=== PATIENT | female | born 1945 | race Caucasian/White ===

== ENCOUNTER → 2016-10-29 | Outpatient (CLI) | payer OTHER ==
[~2016-10-29] MED LIST: ASPCH81X PO; ATEN-173 PO; B-COTAB18 PO; CITA10TA4 PO; CLX40 PO; CYAN500T13 PO; GABA-113 PO; GLC/500 PO; GLUCPOW41 PO; LEVO100T7 PO; LIRA18IN SC; LISI-461 PO; LSN5 PO; METF1000 PO; MULTTAB58 PO; PANT40TA PO; SIMV20TA2 PO; SYN112 PO; TRAM-10 PO
[2016-10-29 13:31] LABS: THYROID STIMULATING HORMONE 1.85 uIu/ml (0.300-4.500)
[2016-10-29 14:49] LABS: LYME DISEASE AB IGG NEG (NEG); LYME DISEASE AB IGM NEG (NEG)
== END | disposition home or self-care (01) ==
LOC: C.LABBFT 11:10
PROVIDERS: ATTEND Internal Medicine
DX: E03.9 Hypothyroidism, unspecified (principal)

== ENCOUNTER 2017-03-24 08:18 | Emergency (ER) | payer OTHER ==
[~2017-03-24] VITALS: Ht 157.5 cm; Wt 95.0 kg
[~2017-03-24 08:18] MED LIST changes: -CLX40 PO; -LSN5 PO; -METF1000 PO; -SYN112 PO
[2017-03-24 08:25] VITALS: TEMP 36.7; Ht 157.5 cm; Wt 95.0 kg
[2017-03-24] MEDS ORDERED: CLX40 PO (09:08)
[2017-03-24] MEDS ORDERED: LSN5 PO (09:08)
[2017-03-24] MEDS ORDERED: METF1000 PO (09:08)
[2017-03-24] MEDS ORDERED: SYN112 PO (09:08)
--- NOTE | 2017-03-24 09:23 | DIAGNOSTIC IMAGING REPORT ---
THORACIC SPINE CT CT DOSE: 1343.40 mGy.cm HISTORY: FALL, MID BACK PAIN TECHNIQUE: Multiaxial CT images of the thoracic spine were performed and reformatted in the sagittal and coronal plane without the use of contrast. A dose lowering technique was utilized adhering to the principles of ALARA. COMPARISON: None. FINDINGS: No acute fracture or subluxation. Vertebral body heights are well-maintained. Flowing anterior osteophytes seen throughout the majority of the thoracic spine consistent with diffuse idiopathic skeletal hyperostosis. Mild disc space narrowing throughout the thoracic spine consistent with degenerative change. No paravertebral soft tissue edema. Dextroscoliosis. A 4 mm nodule within the left lower lobe on image 297. A 4 mm nodule within the right lower lobe on image 279. Subtle 7 mm groundglass nodule within the right lung apex on image 71. No significant central canal narrowing. IMPRESSION: No fractures within the thoracic spine. A few subcentimeter nodules within the lungs as described above. Recommend [address] follow-up to ensure stability. Electronically signed by: Marshall Pierre M.D. 03/24/2017 9:21 AM Dictated Date/Time: 03/24/2017 9:13 AM
--- NOTE | 2017-03-24 09:25 | DIAGNOSTIC IMAGING REPORT ---
RIGHT SHOULDER 3 VIEWS HISTORY: RIGHT, SCAPULAR PAIN AFTER A FALL Right COMPARISON: None. FINDINGS: There is no fracture or dislocation. Soft tissues are unremarkable. Moderate osteoarthritis of the glenohumeral and acromioclavicular joints. There is a large spur at the undersurface of the acromion. The clavicle appears intact. IMPRESSION: No fracture or dislocation within the right shoulder. Moderate osteoarthritis. Electronically signed by: Marshall Pierre M.D. 03/24/2017 9:23 AM Dictated Date/Time: 03/24/2017 9:22 AM
--- NOTE | 2017-03-24 09:27 | DIAGNOSTIC IMAGING REPORT ---
CHEST 2 VIEWS ROUTINE HISTORY: RIGHT CHEST DISCOMFORT AFTER A FALL COMPARISON: Chest 05/31/2014. FINDINGS: The lungs are clear. Cardiac silhouette is borderline enlarged. This is not significantly changed.. No pleural effusions. No pneumothorax. IMPRESSION: No significant change compared to the prior study. No acute process. Electronically signed by: Marshall Pierre M.D. 03/24/2017 9:25 AM Dictated Date/Time: 03/24/2017 9:23 AM
--- NOTE | 2017-03-24 10:12 | EMERGENCY ROOM VISIT NOTE ---
History First contact with patient: 08:28 Chief Complaint: BACK PAIN Stated Complaint: FELL IN BATHTUB, BACK PAIN History of Present Illness Patient is a 71-year-old white female who presents to the emergency department for evaluation of right mid back pain after a mechanical fall last evening. She slipped in the shower last evening, about 15 hours ago. She twisted, striking her right mid back on the shower seat, then falling to the ground. She did not strike her head or lose consciousness. Her was able to help her get up with the assistance of a chair. She noted pain in her mid back immediately. They went for a ride with her grandchildren, then came home. She took tramadol last night and this morning for her discomfort which she presently rates a 9/10. She complains of pain in the right mid back, between her spine and her shoulder blade. Pain is worse with specific movements. She feels more comfortable when she is sitting. She does have some discomfort that she feels through to the right chest. She denies any headache, lightheadedness or dizziness. No neck pain. She denies any rib discomfort, no pain with taking a deep breaths. She denies any abdominal pain, nausea or vomiting. She takes a baby aspirin daily. Review of Systems Review of systems as per HPI. All other systems reviewed were negative. 10 systems reviewed. Past Medical/Surgical History Medical Problems: (1) Diabetes (2) Esophageal Reflux (3) Hypertension (4) Hypothyroidism, Unspecified (5) Kidney problem (6) Vomiting and diarrhea (7) Vomiting and diarrhea Surgical Problems: (1) History of cholecystectomy (2) History of hysterectomy Electronic medical records are reviewed and summarized as above/below. See Problem List. Family History Heart disease Stroke Social History Smoking Status: Never Smoker Alcohol Use: none Drug Use: none Marital Status: Occupation Status: disabled Current/Historical Medications Scheduled Aspirin (Aspirin Chewable), 81 MG PO QAM Atenolol (Tenormin), 25 MG PO QAM Citalopram (Citalopram Hydrobromide), 40 MG PO DAILY Gabapentin (Neurontin), 300 MG PO TID Nysehwoylii-Wvumxbclsyv-Izebqc (Glucosamine & Chrondroiti), 1 TAB PO BID Levothyroxine Sodium (Synthroid), 112 MCG PO DAILY Liraglutide (Victoza), 1.2 MG SC QAM Lisinopril (Lisinopril), 5 MG PO DAILY Metformin Hcl (Glucophage), 1,000 MG PO BID Multiple Vitamin (Multivitamin), 1 TAB PO QAM Pantoprazole (Protonix), 40 MG PO HS Simvastatin (Zocor), 20 MG PO QPM Scheduled PRN Tramadol (Ultram), 50 MG PO Q8H PRN for Pain Physical Exam Vital Signs Date Time Temp Pulse Resp B/P (MAP) Pulse Ox O2 Delivery O2 Flow Rate FiO2 03/24/17 10:30 68 18 129/66 96 03/24/17 09:45 64 18 122/63 95 Room Air 03/24/17 08:25 36.7 73 20 152/77 96 Physical Exam GENERAL: Patient is a pleasant, 71-year-old white female who is awake and alert and sitting upright on the gurney in mild distress due to her mid back discomfort. HEENT: Head - normocephalic and atraumatic. Pupils are equal, round, and reactive to light. Extraocular eye muscles are intact and sclera are anicteric. Ears - bilaterally patent canals with no evidence of hemotympanum. Mouth - moist buccal mucosa with no trauma to the teeth or signs of malocclusion. Neck: The neck is supple and there is no pain to palpation over the posterior cervical spine and no obvious step-offs or deformities. There is no JVD or tracheal deviation. Chest: There are no signs of deformities, contusions or abrasions to the chest wall. There is no obvious crepitus or paradoxical chest rise. Heart: Regular rate, and regular rhythm. Lungs: Breath sounds equal and clear to auscultation without wheezes, rales, or rhonchi heard. Abdomen: Soft, completely nontender, nondistended, with good bowel sounds. There is no sign of trauma such as contusions, abrasions or penetrations. There are no palpable pulsatile masses or hepatosplenomegaly. There is no guarding, rigidity, or rebound noted. Extremities: No obvious trauma, deformities, contusions, or edema. There are easily palpable peripheral pulses. Neuro: The patient is awake and alert and easily able to follow commands. Muscle strength is 5 out of 5 in all 4 extremities. Otherwise, neuro exam is unremarkable. Back: The entire thoracic, lumbar, and sacral spine were palpated. She has reproducible discomfort in the mid thoracic region, primarily on the right, and into the right scapula. No discomfort over the lumbar spine. There are no obvious step-offs or deformities noted. The patient has an area of ecchymosis noted on the left mid back. Medical Decision & Procedures ER Provider Diagnostic Interpretation: CHEST 2 VIEWS ROUTINE HISTORY: RIGHT CHEST DISCOMFORT AFTER A FALL COMPARISON: Chest 05/31/2014. FINDINGS: The lungs are clear. Cardiac silhouette is borderline enlarged. This is not significantly changed.. No pleural effusions. No pneumothorax. IMPRESSION: No significant change compared to the prior study. No acute process. RIGHT SHOULDER 3 VIEWS HISTORY: RIGHT, SCAPULAR PAIN AFTER A FALL Right COMPARISON: None. FINDINGS: There is no fracture or dislocation. Soft tissues are unremarkable. Moderate osteoarthritis of the glenohumeral and acromioclavicular joints. There is a large spur at the undersurface of the acromion. The clavicle appears intact. IMPRESSION: No fracture or dislocation within the right shoulder. Moderate osteoarthritis. THORACIC SPINE CT CT DOSE: 1343.40 mGy.cm HISTORY: FALL, MID BACK PAIN TECHNIQUE: Multiaxial CT images of the thoracic spine were performed and reformatted in the sagittal and coronal plane without the use of contrast. A dose lowering technique was utilized adhering to the principles of ALARA. COMPARISON: None. FINDINGS: No acute fracture or subluxation. Vertebral body heights are well-maintained. Flowing anterior osteophytes seen throughout the majority of the thoracic spine consistent with diffuse idiopathic skeletal hyperostosis. Mild disc space narrowing throughout the thoracic spine consistent with degenerative change. No paravertebral soft tissue edema. Dextroscoliosis. A 4 mm nodule within the left lower lobe on image 297. A 4 mm nodule within the right lower lobe on image 279. Subtle 7 mm groundglass nodule within the right lung apex on image 71. No significant central canal narrowing. IMPRESSION: No fractures within the thoracic spine. A few subcentimeter nodules within the lungs as described above. Recommend [address] follow-up to ensure stability. ED Course Patient was seen and assessed as above. She had her eating and tramadol this morning and therefore declined any additional medication needs. Chest x-ray, right shoulder x-ray and thoracic spine CT scan were obtained to evaluate for injury related to the fall. X-rays and CT were negative for acute fracture or bony abnormality. The patient was reassessed and may aware of the results of her workup. She was reassured. Differential diagnoses entertained included contusion, compression fracture, rib injury, muscle strain, among others. Her fall was mechanical in nature, and not consistent with syncope, seizure or arrhythmia. I do not suspect retroperitoneal or intra-abdominal trauma. She was encouraged to use her tramadol as needed for discomfort, and was advised to follow-up with her primary care provider if her symptoms are not improving. Patient rated her discomfort an 8/10 at discharge. Medical Decision See Emergency Department course. Medication Reconcilliation Current Medication List: was personally reviewed by me Blood Pressure Screening Patient's blood pressure: Elevated blood pressure Blood pressure disposition: Did not require urgent referral Impression Primary Impression: Contusion of mid back Additional Impression: Fall Departure Information Referrals Brenton Llanes M.D. (PCP) Patient Instructions My [facility] Additional Instructions Continue Tramadol as needed for pain. Ibuprofen(Motrin, Advil) may be used for fever or pain. Use 600mg every six hours as needed. Take with food. Avoid using more than 2400mg in a 24 hour period. Do not use 2400mg per day for more than three consecutive days without physician direction. Prolonged inappropriate use can lead to stomach upset or ulcers. This medication can be taken if you need to drive, work, or perform activities which may be dangerous when taking narcotic pain medication. (AND/OR) Acetaminophen(Tylenol) may be used for fever or pain. Use 1000mg every six hours as needed. Avoid using more than 3000mg in a 24 hour period. This medication can be taken if you need to drive, work, or perform activities which may be dangerous when taking narcotic pain medication. Rest and avoid heavy lifting until your symptoms resolve and then gradually return to full activity. A good rule of thumb is if it hurts your back to perform a certain activity, then it should be avoided until you are healthy again. A heating pad, warm compresses, or a hot shower may help with tight muscles and can be done several times a day as needed. Continue current medications. Return to the ER immediately for any numbness, tingling, severe pain, loss of control of your bowels or bladder, inability to walk, or as needed. Follow up with your primary care physician within 3-5 days for a recheck of your current condition. Problem Qualifiers Primary Impression: Contusion of mid back Encounter type: initial encounter Laterality: right Qualified Codes: S20.221A - Contusion of right back wall of thorax, initial encounter Additional Impression: Fall Encounter type: initial encounter Qualified Codes: W19.XXXA - Unspecified fall, initial encounter
[2017-03-24 10:30] VITALS: BP 129/66; PULSE 68; O2SAT 96
--- NOTE | 2017-03-24 15:12 | EMERGENCY ROOM VISIT NOTE ---
ED Visit Note First contact with patient: 08:25 I have personally seen and evaluated the patient with the PA. I agree with the diagnosis and management decisions and have been personally involved in the case. Please see Aicha Rodríguez PA-C's notes for further details of the history , physical and visit.
== END 2017-03-24 10:32 | disposition home or self-care (01) ==
LOC: C.EDB 08:20 → C.EDA 10:32
DX: S20.221A Contusion of right back wall of thorax, initial encounter (principal); W01.0XXA Fall on same level from slipping, tripping and stumbling without subsequent striking against object, initial encounter; Y92.012 Bathroom of single-family (private) house as the place of occurrence of the external cause; E11.9 Type 2 diabetes mellitus without complications; K21.9 Gastro-esophageal reflux disease without esophagitis; I10 Essential (primary) hypertension; E03.9 Hypothyroidism, unspecified; Z82.49 Family history of ischemic heart disease and other diseases of the circulatory system; Z79.82 Long term (current) use of aspirin; Z79.899 Other long term (current) drug therapy

== ENCOUNTER → 2017-04-26 | Outpatient (CLI) | payer OTHER ==
[~2017-04-26] MED LIST changes: -B-COTAB18 PO; -CITA10TA4 PO; +CLX40 PO; -CYAN500T13 PO; -GLC/500 PO; -LEVO100T7 PO; -LISI-461 PO; +LSN5 PO; +METF1000 PO; +SYN112 PO
[2017-04-26 12:46] LABS: ALT/SGPT 34 U/L (12-78); BLOOD UREA NITROGEN 15 mg/dl (7-18); BUN/CREATININE RATIO 14.8 (10-20); CALCIUM 8.6 mg/dl (8.5-10.1); CARBON DIOXIDE 26 mmol/L (21-32); CHLORIDE 103 mmol/L (98-107); CHOLESTEROL 160 mg/dl (0-200); GLUCOSE 199 mg/dl (70-99); POTASSIUM 4.2 mmol/L (3.5-5.1); SODIUM 136 mmol/L (136-145)
[2017-04-26 12:57] LABS: ALB/GLOB RATIO 0.9 (0.9-2); ALKALINE PHOSPHATASE 96 U/L (45-117); AST/SGOT 34 U/L (15-37); CHOLESTEROL/HDL RATIO 2.3; HDL CHOLESTEROL 71 mg/dl; LDL CHOLESTEROL CALCULATED 55 mg/dl; TRIGLYCERIDES 169 mg/dl (0-150); VERY LOW DENSITY LIPOPROT CALC 34 mg/dl
[2017-04-26 13:08] LABS: ESTIMATED AVERAGE GLUCOSE 171 mg/dl; HA1C FLAG Normal (Normal)
[2017-04-26 14:47] LABS: RATIO 2072.7 mcg/mg (0-30.0)
--- NOTE | 2017-05-06 09:48 | CODING QUERY MEDICAL NECESSITY ---
CQSUPPORTING DIAGNOSIS NEEDED A supporting diagnosis is required for the test/procedure performed on this patient in order for us to be reimbursed by the patient's insurance. Please provide a supporting diagnosis for the following test/procedure listed below next to the test name along with your signature. *If there is no additional diagnosis for this patient that would support the following test/procedure please document that below next to the test/procedure. Test(s)/Procedure(s) that require a supporting diagnosis: DOS 04/26/17 VITAMIN D TEST Provider Signature: Date: Thank you Faith Dhillon Health Information Management Once completed, please kindly fax back to [phone] For questions please call [phone]
== END | disposition home or self-care (01) ==
LOC: C.LAB1850 11:19
PROVIDERS: ATTEND Internal Medicine Endocrinology, Diabetes & Metabolism
DX: E11.9 Type 2 diabetes mellitus without complications (principal)

== ENCOUNTER 2017-07-12 19:13 | Emergency (ER) | payer OTHER ==
[2017-07-12 19:19] VITALS: TEMP 36.7; Ht 157.5 cm
--- NOTE | 2017-07-12 20:31 | DIAGNOSTIC IMAGING REPORT ---
LEFT KNEE 3 VIEWS CLINICAL HISTORY: Left knee injury. FINDINGS: AP, crosstable lateral, and sunrise views of the left knee are obtained. No prior studies are available for comparison at the time of dictation. The skeletal structures are osteopenic. No fracture is seen. There is advanced tricompartmental degenerative joint space narrowing, greatest in the medial and patellofemoral compartment where there is near complete loss of the joint space. There are large marginal osteophytes. Chondrocalcinosis is seen in the medial and lateral compartments. Calcified fabella is are incidentally noted. A small joint effusion is identified. Mild overlying soft tissue edema is noted. IMPRESSION: 1. Soft tissue swelling and moderate effusion. No fracture seen. 2. Osteopenia and advanced arthritic change as above. Electronically signed by: Mulugeta Cardona M.D. 07/12/2017 8:30 PM Dictated Date/Time: 07/12/2017 8:27 PM
[2017-07-12] MEDS ORDERED: INSU3INJ3 SQ (20:52)
--- NOTE | 2017-07-12 20:52 | EMERGENCY ROOM VISIT NOTE ---
ED Visit Note First contact with patient: 19:24 The patient was seen and examined with Aidee Howe PA-C. I agree with the history, physical and findings. Please see the note for disposition and details.
--- NOTE | 2017-07-12 21:02 | EMERGENCY ROOM VISIT NOTE ---
History First contact with patient: 19:24 Chief Complaint: KNEEPAIN Stated Complaint: KNEE PAIN LEFT History of Present Illness The patient is a 71 year old female who presents to the Emergency Room with complaints of left knee pain. The patient reports she has had issues with the left knee for the past 2 months following a fall. She has had worsening pain for the past 2 weeks. She states that today, she twisted the knee and has had difficulty walking since then. She took a tramadol at home for pain without relief. She rates her discomfort a 9/10. She denies any numbness or weakness. She denies any further injuries. She has previously seen [facility] regarding both of her knees. She has had injections for arthritis. Review of Systems A 6 point review of systems was reviewed with the patient with pertinent positives and negatives as per history of present illness. All else were negative. Past Medical/Surgical History Medical Problems: (1) Diabetes (2) Esophageal Reflux (3) Hypertension (4) Hypothyroidism, Unspecified (5) Kidney problem (6) Vomiting and diarrhea (7) Vomiting and diarrhea Surgical Problems: (1) History of cholecystectomy (2) History of hysterectomy Family History Heart disease Stroke Social History Smoking Status: Never Smoker Alcohol Use: none Drug Use: none Marital Status: Occupation Status: disabled Current/Historical Medications Scheduled Aspirin (Aspirin Chewable), 81 MG PO QAM Atenolol (Tenormin), 25 MG PO QAM Citalopram (Citalopram Hydrobromide), 40 MG PO DAILY Gabapentin (Neurontin), 300 MG PO TID Slvztqzlnjh-Japjuuqutqh-Rquzab (Glucosamine & Chrondroiti), 1 TAB PO BID Insulin Detemir (Levemir Flextouch), 20 UNITS SQ QPM Levothyroxine Sodium (Synthroid), 112 MCG PO DAILY Liraglutide (Victoza), 1.2 MG SC QAM Lisinopril (Lisinopril), 5 MG PO DAILY Metformin Hcl (Glucophage), 1,000 MG PO BID Multiple Vitamin (Multivitamin), 1 TAB PO QAM Pantoprazole (Protonix), 40 MG PO HS Simvastatin (Zocor), 20 MG PO QPM Scheduled PRN Tramadol (Ultram), 50 MG PO Q8H PRN for Pain Physical Exam Vital Signs Date Time Temp Pulse Resp B/P (MAP) Pulse Ox O2 Delivery O2 Flow Rate FiO2 12/17 21:10 75 18 140/95 97 07/12/17 19:19 36.7 75 18 178/103 97 Room Air Physical Exam VITALS: Vitals are noted on the nurse's note and reviewed by myself. Vital signs stable. GENERAL: This is a 71-year-old female, in no acute distress, nondiaphoretic, well-developed well-nourished. MUSCULOSKELETAL: There is tenderness to palpation across the anterior aspect of the left knee. Full range of motion of the knee. Decreased strength. No obvious joint effusion. NEURO: Patient was alert and oriented to person place and time. Normal sensation to light and sharp touch. Medical Decision & Procedures ER Provider Diagnostic Interpretation: LEFT KNEE 3 VIEWS CLINICAL HISTORY: Left knee injury. FINDINGS: AP, crosstable lateral, and sunrise views of the left knee are obtained. No prior studies are available for comparison at the time of dictation. The skeletal structures are osteopenic. No fracture is seen. There is advanced tricompartmental degenerative joint space narrowing, greatest in the medial and patellofemoral compartment where there is near complete loss of the joint space. There are large marginal osteophytes. Chondrocalcinosis is seen in the medial and lateral compartments. Calcified fabella is are incidentally noted. A small joint effusion is identified. Mild overlying soft tissue edema is noted. IMPRESSION: 1. Soft tissue swelling and moderate effusion. No fracture seen. 2. Osteopenia and advanced arthritic change as above. Medical Decision Differential diagnosis includes fracture, ligamentous injury, soft tissue injury , among others. The patient was evaluated as above. X-rays of the left knee were obtained and reviewed by radiology with an effusion and no bony abnormalities. Patient was informed of findings. She will follow-up with her established orthopedist. She has a walker at home and was placed in a knee immobilizer. She verbalized understanding and was discharged home in good condition. The patient was independently evaluated by Dr. Brody, ED attending physician, who agreed with my assessment and treatment plan. Medication Reconcilliation Current Medication List: was personally reviewed by me Blood Pressure Screening Patient's blood pressure: Elevated blood pressure Blood pressure disposition: Elevated BP felt to be situational Impression Primary Impression: Left knee injury Departure Information Dispostion Home / Self-Care Condition GOOD Referrals Brenton Llanes M.D. (PCP) Julian Mo M.D. Patient Instructions My [facility] Additional Instructions You have been treated in the Emergency Department for Knee Pain. For pain control, you can use the following hjkv-iyb-vdyfyps medicines (if >12 yo): - Regular strength (325mg/tab) Tylenol (acetaminophen) 2 tabs every 4-6 hours as needed. Do not exceed 12 tablets in a 24 hour period. Avoid taking more than 4 grams (4000 mg) of Tylenol per day. This includes any other sources of acetaminophen you may take on a regular basis. - Regular strength (200 mg/tab) Advil (ibuprofen) 1-2 tabs every 4-6 hours as needed. Do not exceed a dose of 3200 mg per day. If this is a recent injury (<24 hrs), ice can be applied to the area of pain for the first 3 days to help decrease pain and inflammation. Ice massages can be performed by freezing water in a paper cup, peeling back the cup to expose the ice and then massaging over the affected area. Contact [facility] to schedule follow-up. Use the walker at home anytime you are up and walking. Wear the knee immobilizer as needed for your comfort. Return to the Emergency Department if your current symptoms worsen despite treatment course outlined above. Problem Qualifiers Primary Impression: Left knee injury Encounter type: initial encounter Qualified Codes: S89.92XA - Unspecified injury of left lower leg, initial encounter
[2017-07-12 21:10] VITALS: BP 140/95; PULSE 75; O2SAT 97
== END 2017-07-12 21:10 | disposition home or self-care (01) ==
LOC: C.EDB 19:14 → C.EDD 21:10
DX: S89.92XA Unspecified injury of left lower leg, initial encounter (principal); X58.XXXA Exposure to other specified factors, initial encounter; I10 Essential (primary) hypertension; E11.9 Type 2 diabetes mellitus without complications; E03.9 Hypothyroidism, unspecified; K21.9 Gastro-esophageal reflux disease without esophagitis; Z90.710 Acquired absence of both cervix and uterus; Z90.49 Acquired absence of other specified parts of digestive tract; Z79.82 Long term (current) use of aspirin; Z79.4 Long term (current) use of insulin; Z79.84 Long term (current) use of oral hypoglycemic drugs; Z79.899 Other long term (current) drug therapy; Z82.49 Family history of ischemic heart disease and other diseases of the circulatory system; Z82.3 Family history of stroke

== ENCOUNTER → 2017-07-26 | Outpatient (CLI) | payer OTHER ==
[~2017-07-26] MED LIST changes: +INSU3INJ3 SQ
[2017-07-26 14:39] LABS: ESTIMATED AVERAGE GLUCOSE 163 mg/dl; HA1C FLAG Normal (Normal)
== END | disposition home or self-care (01) ==
LOC: C.LAB1850 13:23
PROVIDERS: ATTEND Internal Medicine Endocrinology, Diabetes & Metabolism
DX: E03.9 Hypothyroidism, unspecified (principal); E11.9 Type 2 diabetes mellitus without complications; E55.9 Vitamin D deficiency, unspecified

== ENCOUNTER → 2017-09-30 | Outpatient (CLI) | payer OTHER ==
[~2017-09-30] MED LIST changes: +CHOL100010 PO; -GLUCPOW41 PO; +LEVO125T5 PO; +LISI-725 PO; -LSN5 PO; +MULT-506 PO; -MULTTAB58 PO; -SYN112 PO
--- NOTE | 2017-09-30 13:22 | DIAGNOSTIC IMAGING REPORT ---
CT SCAN OF THE CHEST WITHOUT IV CONTRAST CLINICAL HISTORY: Pulmonary nodule follow-up COMPARISON STUDY: Chest CT dated 07/19/2012. CT scan of the thoracic spine dated 03/24/2017. TECHNIQUE: CT scan of the thorax was performed from the thoracic inlet to the upper abdomen. Images are reviewed in the axial, sagittal, and coronal planes. IV contrast was not administered for this examination as per the referring clinician. A dose lowering technique was utilized adhering to the principles of ALARA. CT DOSE: 619.60 mGycm FINDINGS: Thyroid: Atrophic. Thoracic aorta: There is mild atherosclerotic calcification of the thoracic aorta, which is normal in caliber and demonstrates standard 3-vessel arch anatomy. Heart: The heart is top normal in size and without pericardial effusion. The coronary arteries are densely calcified. Pulmonary trunk is dilated measuring up to 3.5 cm. This suggests pulmonary artery hypertension. Lungs and pleural spaces: There is no airspace consolidation or pleural effusion. The trachea and central airways are clear. There are scattered tiny pulmonary nodules measuring up to 4 mm) right lower lobe images #195, #222, and #230, left lower lobe images #193 and #220). These nodules were present dating back to 2011 and are of doubtful significance. Tiny calcified granulomas are also present. Mediastinum: There is no mediastinal lymphadenopathy. Henrietta: Not well assessed without IV contrast. Axillae: There is no axillary lymphadenopathy. Upper abdomen: Partially visualized upper abdominal viscera is within normal limits. Skeletal structures: The skeletal structures are osteopenic. There is a healing nonunited fracture through the body of T7. This extends from the anterior wall to the inferior endplates and does not involve the posterior elements. No lytic or blastic bony lesions are seen. IMPRESSION: 1. There is no airspace consolidation or pleural effusion. 2. There are scattered pulmonary nodules measuring up to 4 mm. These have not significantly changed in size or distribution dating October 30, 2011 and are of doubtful significance. 3. There is a healing nonunited fracture through the body of T7 as detailed above which does not involve the posterior elements. Electronically signed by: Mulugeta Cardona M.D. 09/30/2017 1:21 PM Dictated Date/Time: 09/30/2017 1:03 PM
== END | disposition home or self-care (01) ==
LOC: C.CTS 12:18
PROVIDERS: ATTEND Internal Medicine
DX: R91.1 Solitary pulmonary nodule (principal)

== ENCOUNTER 2024-04-09 21:30 | Inpatient (IN) ==
--- NOTE | 2024-04-09 22:02 | Emergency Department Note ---
Impression & Plan Left hip pain, Fall, Abrasion of left elbow, Ambulatory dysfunction ED Provider Note NAME: ANA LUISA DAHL AGE: 78 SEX: F : 1945 ARRIVES VIA: Ambulance INFORMANT: [Patient] ED PROVIDER(S): [Mulugeta Ly MD] CHIEF COMPLAINT: Hip pain HISTORY OF PRESENT ILLNESS: The patient is a 78-year-old female who states that she missed the edge of her wheelchair and fell onto her left hip. She has pain when she tries to bear weight on the left leg. At this accident happened just before arrival. She presents by EMS. She states that when she is still, she does not have pain. She did not strike her head or injure her neck or back. She has no chest pain or abdominal pain. Patient does not want anything for pain at this time. She is not on blood thinning agents. Of note, the patient has had a right hip replacement previously. PMHx/PSHx/Social Hx: See Below PHYSICAL EXAM: GENERAL: Patient is in no acute distress. HEENT: No acute trauma, normocephalic atraumatic, mucous membranes moist, no nasal congestion. NECK: No stridor, no adenopathy, no meningismus, trachea is midline. LUNGS: Clear to auscultation bilaterally, no wheeze, no rhonchi, breath sounds equal. HEART: Without murmurs gallops or rubs, regular rate and rhythm. ABDOMEN: Soft, nontender, no peritonitis. EXTREMITIES: No cyanosis. Movement of the left hip does cause some discomfort. There is no left lower extremity deformity. There is a slight abrasion noted to the left posterior elbow. No joint effusion to the left elbow and no pain to move the left elbow joint. NEUROLOGIC: Oriented x 3, no acute motor or sensory deficits, no focal weakness. SKIN: No jaundice, no diaphoresis. Buttock: There is no hematoma or contusion seen in the area of the left hip/buttock. DIFFERENTIAL DIAGNOSIS: Contusion, hematoma, sprain, strain, fracture, among others. EMERGENCY DEPARTMENT PROCEDURES: MEDICAL DECISION MAKING: Patient presents with a fall from her wheelchair onto her left hip. There was no gross deformity to the left lower extremity. She had some mild pain to move the left hip. There was a subtle abrasion to the left elbow but no pain to move the elbow joint. There was no obvious injury to the head, neck, back, chest or abdomen. Films of the left hip and pelvis were performed. There was no obvious through and through hip fracture but there was some irregularity to the greater trochanter of the left hip. A CT of the hip was performed, no fracture seen, arthritis was noted. Patient was ordered for an ambulation trial. She was unfortunately unable to bear weight or take a step. The patient was given IV Toradol, oral Tylenol. Basic laboratory testing was ordered, the values are pending. Given the ambulatory dysfunction and given her pain, the patient will require a hospital stay, pain control and rehab. At this point, the patient appears to have suffered a severe contusion to the left hip from this fall. She has an abrasion to the left posterior elbow. No evidence for injury to the head, neck, back, chest or abdomen. I did speak with case management, the on-call hospitalist was consulted. Prior/Outside records/notes reviewed: Today's EMS notes describing her presentation and transport to this hospital. Imaging/x-ray results per my interpretation: Left hip and pelvis film was p erformed. There was an irregularity to the greater trochanter of the hip but I saw no through and through hip fracture. Some arthritis was seen. Chronic Medical/Social conditions affecting care: Advanced age. Care/Management discussed with: Case management, the on-call hospitalist. Level of care consideration(s): After review of the information above and other included data: --I believe the patient requires escalation of care to admission DISPOSITION: Admission Past Med/Surg History Problem List (Updated 04/10/24 @ 02:27 by Mulugeta yL MD) Ambulatory dysfunction (Acute) Abrasion of left elbow (Acute) Fall (Acute) Left hip pain (Acute) Osteopenia after menopause GERD (gastroesophageal reflux disease) Chronic anemia Albuminuria Arthritis Chronic low back pain Depression with anxiety Diabetic nephropathy associated with type 2 diabetes mellitus Dyslipidemia Hypertension Hypothyroidism Lung nodule Overweight Sleep apnea Solitary thyroid nodule Spinal stenosis Type 2 diabetes mellitus with complications Umbilical hernia Vitamin D insufficiency History of fatty infiltration of liver Chronic renal disease, stage 3, moderately decreased glomerular filtration rate (GFR) between 30-59 mL/min/1.73 square meter Diabetes type 2, controlled Proteinuria Situational stress Stage 3b chronic kidney disease Medical History History of uterine cancer Eric's thyroiditis Surgical History History of total hip replacement Right TKA History of tooth extraction History of cholecystectomy History of section Low transverse Family history of total abdominal hysterectomy and bilateral salpingo-oophorectomy (SHAWN-BSO) Family History Mother Coronary heart disease Hypertension Father Myocardial infarction Uncle Myocardial infarction Aunt Breast cancer Denies family history of Ovarian cancer Prostate cancer Colorectal cancer Social History Smoking Status: Never smoker Second Hand Exposure: No; Do You Dip or Chew Tobacco: No; Hx Alcohol Use: Yes Alcohol type: other Alcohol type Comment: wine cooler Alcohol Intake Frequency: Monthly or Less Hx Substance Use: No Preferred Language: Beninese Hearing Ability: Normal 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 marital status: Current Living Situation: Spouse current occupational status: retired 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 How many Children do You have: 2 Feels Safe at Home: Yes Childhood Exposure to Second-Hand Smoke: No Diet: regular caffeine: Yes Dental Care, Regularly: Yes Physical Activity Frequency: 1-2 Times per Week Seatbelt Use: always Sunscreen Use: Yes Assistive Devices: Glasses Allergies Allergies Allergy/AdvReac Type Severity Reaction Status Date / Time No Known Allergies Allergy Verified 04/10/24 00:03 Home Meds Home Medications Medication Instructions Recorded Confirmed lancets (LivestageTouch UltraSoft #50 ea 03/29/19 12/10/23 Lancets) Cbd Cream 1 applic topical UD PRN Pain 09/08/20 04/10/24 blood sugar diagnostic (LivestageTouch #10 ea 01/02/21 12/10/23 Ultra Blue Test Strip) cholecalciferol (vitamin D3) 25 2,000 unit PO DAILY 01/11/21 04/10/24 mcg (1,000 unit) tablet (Vitamin D3) multivitamin 1 tab PO DAILY 02/02/22 04/10/24 insulin degludec 100 unit/mL (3 36 unit subcut HS 04/10/24 04/10/24 mL) subcutaneous pen (Tresiba FlexTouch U-100 insulin) tramadol 50 mg tablet 50 - 100 mg PO TID PRN pain 04/10/24 04/10/24 trazodone 50 mg tablet 50 mg PO HS PRN insomnia 04/10/24 04/10/24 Previous Rx's Medication Instructions Recorded buspirone 5 mg tablet 5 mg PO BID PRN anxiety #60 tabs 04/01/23 pen needle, diabetic 31 gauge x #200 ea 04/24/2316" (BD Ultra-Fine Short Pen Needle) duloxetine 60 mg capsule,delayed 60 mg PO DAILY #90 caps 05/01/23 release levothyroxine 112 mcg tablet 112 mcg PO DAILY #90 tabs 10/29/23 empagliflozin 25 mg tablet 25 mg PO DAILY #30 tabs 11/29/23 (Jardiance) semaglutide 1 mg/dose (4 mg/3 mL) 1 mg (0.75 mL) subcut ONCE #3 mL 12/10/23 subcutaneous pen injector (Ozempic) pantoprazole 20 mg tablet,delayed 20 mg PO DAILY #90 tabs 12/11/23 release metformin 500 mg tablet 500 mg PO BIDWMEAL #180 tabs 01/31/24 simvastatin 20 mg tablet 20 mg PO QPM #90 tabs 02/21/24 amlodipine 5 mg tablet 5 mg PO DAILY #90 tabs 02/24/24 atenolol 25 mg tablet 25 mg PO BID #180 tabs 02/24/24 lisinopril 20 mg tablet 20 mg PO DAILY #90 tabs 02/24/24 gabapentin 300 mg capsule 300 mg PO TID #270 caps 03/18/24 Results & Data (ED) Vital Signs Vital Signs - 24 hr 04/09/24 21:36 04/09/24 21:37 04/09/24 23:19 Temperature 36.5 C Temperature Source Oral Pulse Rate 71 71 Pulse Rate [Apical] 70 Pulse Rhythm Regular Pulse Strength Normal Respiratory Rate 16 17 Respiratory Effort / Characteristics Non-Labored Spontaneous Non-Labored Spontaneous Respiratory Depth Normal Normal Respiratory Pattern Regular Regular Blood Pressure 172/80 H Blood Pressure [Right Arm] 159/84 H Blood Pressure Mean 110 Blood Pressure Mean [Right Arm] 109 Blood Pressure Position Sitting Pulse Oximetry 99 96 Oxygen Delivery Method Room Air Room Air Sepsis Recent Fever Within 48 Hours No Sepsis New/Unexplained Change in Mental Status No Sepsis Action Taken by Nursing No Action Required 04/10/24 01:00 04/10/24 01:37 Temperature Temperature Source Pulse Rate 74 Pulse Rate [Apical] 70 Pulse Rhythm Pulse Strength Respiratory Rate 19 Respiratory Effort / Characteristics Non-Labored Spontaneous Respiratory Depth Normal Respiratory Pattern Regular Blood Pressure Blood Pressure [Right Arm] 158/81 H Blood Pressure Mean Blood Pressure Mean [Right Arm] 106 Blood Pressure Position Pulse Oximetry 98 Oxygen Delivery Method Room Air Sepsis Recent Fever Within 48 Hours Sepsis New/Unexplained Change in Mental Status Sepsis Action Taken by Half-Way Medications Current Medication List: was personally reviewed by hi Imaging Data Radiologist's Impression: Hip CT 04/09/24 22:22 Exam(s): CT LEFT HIP Without Contrast EXAM: CT Left Lower Extremity Without Intravenous Contrast, Hip CLINICAL HISTORY: Reason for exam: fall, pain. TECHNIQUE: Axial computed tomography images of the left hip without intravenous contrast. CTDI is 36.58 mGy and DLP is 782.38 mGy-cm. Automated exposure control was utilized for the study. A dose lowering technique was utilized adhering to the principles of ALARA. COMPARISON: No relevant prior studies available. FINDINGS: Bones/joints: Osteoarthritis of the LEFT hip joint. Diffuse osseous demineralization. No acute fracture or subluxation. Soft tissues: Unremarkable. IMPRESSION: No acute fracture or subluxation. Electronically signed by: Isai Ceja MD 04/10/24 02:00 AM Discharge Plan Visit Data Chief Complaint: Fall Stated Complaint: FALL, L HIP PAIN ED Provider: Mulugeta Ly Discharge Problem: Left hip pain, Fall, Abrasion of left elbow, Ambulatory dysfunction Patient Disposition: Admitted As Inpatient Condition: Good Forms Stand Alone Forms: My [facility], Important Visit Information Prescriptions Prescriptions: No Action buspirone 5 mg tablet 5 mg PO BID PRN (Reason: anxiety) Qty: 60 5RF (DME) pen needle, diabetic [BD Ultra-Fine Short Pen Needle] 31 gauge x 5/16" needle See Dose Instructions .ROUTE .MEDSUPPLY Qty: 200 3RF Rx Instructions: use twice daily , E11.21 duloxetine 60 mg capsule,delayed release(DR/EC) 60 mg PO DAILY Qty: 90 3RF levothyroxine 112 mcg tablet 112 mcg PO DAILY Qty: 90 3RF Jardiance 25 mg tablet 25 mg PO DAILY Qty: 30 4RF Rx Instructions: Take one tablet by mouth once daily. pantoprazole 20 mg tablet,delayed release (DR/EC) 20 mg PO DAILY Qty: 90 3RF metformin 500 mg tablet 500 mg PO BIDWMEAL Qty: 180 3RF Rx Instructions: Take ONE tablet by mouth with meals twice daily. simvastatin 20 mg tablet 20 mg PO QPM Qty: 90 3RF gabapentin 300 mg capsule 300 mg PO TID Qty: 270 3RF multivitamin Tablet 1 tab PO DAILY (DME) lancets [OneTouch UltraSoft Lancets] misc See Dose Instructions .ROUTE .MEDSUPPLY Qty: 50 Patient Comments: twice daily Rx Instructions: As directed (DME) OneTouch Ultra Blue Test Strip Strip See Rx Instructions .ROUTE .MEDSUPPLY Qty: 10 Rx Instructions: test 3 times daily Ozempic 1 mg/dose (4 mg/3 mL) pen injector 1 mg subcut ONCE Qty: 3 5RF Rx Instructions: MONDAYS lisinopril 20 mg tablet 20 mg PO DAILY Qty: 90 3RF amlodipine 5 mg tablet 5 mg PO DAILY Qty: 90 3RF atenolol 25 mg tablet 25 mg PO BID Qty: 180 3RF Cbd Cream 1 applic topical UD PRN (Reason: Pain) cholecalciferol (vitamin D3) [Vitamin D3] 25 mcg (1,000 unit) tablet 2,000 unit PO DAILY tramadol 50 mg tablet 50 - 100 mg PO TID PRN (Reason: pain) insulin degludec [Tresiba FlexTouch U-100] 100 unit/mL (3 mL) insulin pen 36 unit subcut HS trazodone 50 mg tablet 50 mg PO HS PRN (Reason: insomnia) Referrals Referrals: Marilu Villanueva MD [Primary Care Provider] - Discharge Problem: Fall Qualifiers: Encounter type: initial encounter Qualified Code(s): W19.XXXA - Unspecified fall, initial encounter Abrasion of left elbow Qualifiers: Encounter type: initial encounter Qualified Code(s): S50.312A - Abrasion of left elbow, initial encounter
--- NOTE | 2024-04-10 02:01 | CT Scan Report ---
Exam(s): CT LEFT HIP Without Contrast EXAM: CT Left Lower Extremity Without Intravenous Contrast, Hip CLINICAL HISTORY: Reason for exam: fall, pain. TECHNIQUE: Axial computed tomography images of the left hip without intravenous contrast. CTDI is 36.58 mGy and DLP is 782.38 mGy-cm. Automated exposure control was utilized for the study. A dose lowering technique was utilized adhering to the principles of ALARA. COMPARISON: No relevant prior studies available. FINDINGS: Bones/joints: Osteoarthritis of the LEFT hip joint. Diffuse osseous demineralization. No acute fracture or subluxation. Soft tissues: Unremarkable. IMPRESSION: No acute fracture or subluxation. Electronically signed by: Isai Ceja MD 04/10/24 02:00 AM
--- NOTE | 2024-04-10 02:30 | History & Physical Report ---
Date of Service April 10, 2024 Assessment & Plan (1) Left hip pain: Plan: Unable to ambulate following fall upon the left hip. No fracture. Patient will likely benefit from short rehab stay. PT/OT consulted Pain control: ERIC Tylenol, Q6H toradol, Q4H tramadol, Q4H 0.25 and 0.5 dilaudid PT/OT - likely require short rehab stay fall precautions until cleared by PT (2) Type 2 diabetes mellitus with complications: Plan: Patient on metformin, insulin, and empagliflozin. Hold PO meds while inpatient. Basal: 9 units BID. SSI - adjust basal as indicated. (3) Ambulatory dysfunction: (4) Fall: (5) Contusion of hip, left: Plan med rec not yet completed, would order home meds once completed HTN - restart antihypertensives as BP tolerates HLD - on statin therapy Anxiety - buspar PRN Chronic Pain - gabapentin, duloxetine, tramadol Hypothyroidism - levothyroxine GERD - pantoprazole Code status: full DVT ppx: SCDs, if prolonged hospital stay consider chemoppx FENGI: heart healthy, carb consistent, NSS @ 125 mL/hr x 1 L Dispo: MedSurg History of Present Illness Chief Complaint: fall Primary Care Provider: Marilu Villanueva MD 78 y/o with a PMHx of IDDM, HTN, HLD, GERD, chronic pain, neuropathy, and hypothyroidism presents to the ED after a fall. Patient was going to sit on her wheelchair when she missed and landed on her left hip and shoulder. Very minimal pain at rest. Significant pain with attempted ambulation. XR without signs of fracture. Unable to ambulate due to pain. Hospitalist team consulted for admission. Patient with no preceding symptoms. No fevers, chills, CP, SOB, lightheadedness, dizziness, syncope, LOC, head trauma etc. Patient independent with ADLs. Primary caregiver for . Allergies Allergy/AdvReac Type Severity Reaction Status Date / Time No Known Allergies Allergy Verified 04/10/24 00:03 Home Medications Medication Instructions Recorded Confirmed Type lancets (CabbyGoTouch UltraSoft #50 ea 03/29/19 12/10/23 History Lancets) Cbd Cream 1 applic topical UD PRN Pain 09/08/20 04/10/24 History blood sugar diagnostic (CabbyGoTouch #10 ea 01/02/21 12/10/23 History Ultra Blue Test Strip) cholecalciferol (vitamin D3) 25 2,000 unit PO DAILY 01/11/21 04/10/24 History mcg (1,000 unit) tablet (Vitamin D3) multivitamin 1 tab PO DAILY 02/02/22 04/10/24 History buspirone 5 mg tablet 5 mg PO BID PRN anxiety #60 tabs 04/01/23 04/10/24 Rx pen needle, diabetic 31 gauge x #200 ea 04/24/23 12/10/23 Rx 5/16" (BD Ultra-Fine Short Pen Needle) duloxetine 60 mg capsule,delayed 60 mg PO DAILY #90 caps 05/01/23 04/10/24 Rx release levothyroxine 112 mcg tablet 112 mcg PO DAILY #90 tabs 10/29/23 04/10/24 Rx empagliflozin 25 mg tablet 25 mg PO DAILY #30 tabs 11/29/23 04/10/24 Rx (Jardiance) semaglutide 1 mg/dose (4 mg/3 mL) 1 mg (0.75 mL) subcut ONCE #3 mL 12/10/23 04/10/24 Rx subcutaneous pen injector (Ozempic) pantoprazole 20 mg tablet,delayed 20 mg PO DAILY #90 tabs 12/11/23 04/10/24 Rx release metformin 500 mg tablet 500 mg PO BIDWMEAL #180 tabs 01/31/24 04/10/24 Rx simvastatin 20 mg tablet 20 mg PO QPM #90 tabs 02/21/24 04/10/24 Rx amlodipine 5 mg tablet 5 mg PO DAILY #90 tabs 02/24/24 04/10/24 Rx atenolol 25 mg tablet 25 mg PO BID #180 tabs 02/24/24 04/10/24 Rx lisinopril 20 mg tablet 20 mg PO DAILY #90 tabs 02/24/24 04/10/24 Rx gabapentin 300 mg capsule 300 mg PO TID #270 caps 03/18/24 04/10/24 Rx insulin degludec 100 unit/mL (3 36 unit subcut HS 04/10/24 04/10/24 History mL) subcutaneous pen (Tresiba FlexTouch U-100 insulin) tramadol 50 mg tablet 50 - 100 mg PO TID PRN pain 04/10/24 04/10/24 History trazodone 50 mg tablet 50 mg PO HS PRN insomnia 04/10/24 04/10/24 History Past Med/Surg History Problem List (Updated 04/10/24 @ 02:31 by Tracee Perez MD) Contusion of hip, left Ambulatory dysfunction (Acute) Abrasion of left elbow (Acute) Fall (Acute) Left hip pain (Acute) Osteopenia after menopause GERD (gastroesophageal reflux disease) Chronic anemia Albuminuria Arthritis Chronic low back pain Depression with anxiety Diabetic nephropathy associated with type 2 diabetes mellitus Dyslipidemia Hypertension Hypothyroidism Lung nodule Overweight Sleep apnea Solitary thyroid nodule Spinal stenosis Type 2 diabetes mellitus with complications Umbilical hernia Vitamin D insufficiency History of fatty infiltration of liver Chronic renal disease, stage 3, moderately decreased glomerular filtration rate (GFR) between 30-59 mL/min/1.73 square meter Diabetes type 2, controlled Proteinuria Situational stress Stage 3b chronic kidney disease Medical History History of uterine cancer Eric's thyroiditis Surgical History History of total hip replacement Right TKA History of tooth extraction History of cholecystectomy History of section Low transverse Family history of total abdominal hysterectomy and bilateral salpingo- oophorectomy (SHAWN-BSO) Family History Mother Coronary heart disease Hypertension Father Myocardial infarction Uncle Myocardial infarction Aunt Breast cancer Denies family history of Ovarian cancer Prostate cancer Colorectal cancer Social History Smoking Status: Never smoker Second Hand Exposure: No; Do You Dip or Chew Tobacco: No; Hx Alcohol Use: No Hx Substance Use: No Preferred Language: Zimbabwean Communication Ability: Effective Hearing Ability: Normal [place] Required: No Beliefs That Will Affect Care: None marital status: Current Living Situation: Spouse current occupational status: retired current occupation: [employer] specialist How many Children do You have: 2 Feels Safe at Home: Yes Safety Concerns: Feels Safe At This Time Childhood Exposure to Second-Hand Smoke: No Diet: regular caffeine: Yes Dental Care, Regularly: Yes Physical Activity Frequency: 1-2 Times per Week Seatbelt Use: always Sunscreen Use: Yes Assistive Devices: Cane Review of Systems Review of Systems: See HPI Physical Exam Physical Exam: Gen: well appearing patient in NAD HEENT: AT NC MMM Resp: CTAB no wheezing no increased work of breathing CV: RRR no m/r/g clinically well perfused Abd: +BS, soft, non-tender, non-distended MSK: no obvious deformities, LLE neurovascularly intact Skin: no rashes or bruising Neuro: alert and oriented Psych: appropriate mood and affect Results & Data Results & Data Vital Signs (Past 12 Hours) Vital Signs Temp Pulse Pulse Resp BP BP Pulse Ox 04/10/24 01:37 74 04/10/24 01:00 70 19 158/81 H 98 04/09/24 23:19 70 17 159/84 H 96 04/09/24 21:37 36.5 C 71 16 172/80 H 99 04/09/24 21:36 71 O2 Del Method 04/10/24 01:37 04/10/24 01:00 Room Air 04/09/24 23:19 Room Air 04/09/24 21:37 Room Air 04/09/24 21:36 Supervising Physician Co-Signing Physician Notes Attending addendum: I have physically seen this patient, have supervised the medical residents activities, and agree with the H&P unless as otherwise noted. Assessment and Plan: Left hip pain- Ambulatory dysfunction status post fall, left hip X-rays and CT scan left hip negative Pain control with sequential Tylenol, Toradol, tramadol and Dilaudid as noted Consult PT/OT If pain is out of proportion to physical findings, may need an MRI, fracture not showing up on CT or x-ray Diabetes mellitus- Hold empagliflozin, semaglutide and metformin Basal insulin and Accu-Cheks with NovoLog SSI as noted Check hemoglobin A1c Chronic pain syndrome- Continue gabapentin, duloxetine, tramadol and trazodone Resident Activity Tracking Resident Involvement: Resident Care Provided Care Provided: Adult Hospital Medicine (4) Fall Encounter type: initial encounter Qualified Code(s): W19.XXXA - Unspecified fall, initial encounter
[2024-04-10] MEDS: ACETAMINOPHEN 500 MG TAB PO STA (02:52)
[2024-04-10] MEDS: KETOROLAC TROMETHAMINE 15 MG/ML VIAL IV ONE (02:53)
[2024-04-10 03:13] LABS: Hematocrit (blood only) 38.6 % (37.0-47.0); Hemoglobin 11.9 g/dl (12.0-16.0); Mean Corpuscular Hemoglobin 25.2 pg (25.0-34.0); Mean Corpuscular Hgb Conc 30.8 g/dL (32.0-36.0); Mean Corpuscular Volume 81.6 fL (80.0-100.0); Mean Platelet Volume 9.5 fL (9.4-12.4); Platelet Count 204 K/uL (130-400); RDW Coefficient of Variation 14.6 % (11.5-14.5); Red Blood Count 4.73 M/uL (4.20-5.40); White Blood Count 10.56 K/ul (4.8-10.8)
[2024-04-10 03:30] LABS: BUN Creatinine Ratio 23.1 (10-20); Calcium 9.2 mg/dl (8.6-10.3); Creatinine Clr Calc Pharmacy 35.3 ml/min; Est GFR (African American) 41.1 ml/min; Est GFR (Non-African American) 35.5 ml/min; Potassium 4.4 mmol/L (3.5-5.1)
[2024-04-10] MEDS ORDERED: GLUCOSE 40% GEL 15 GM TUBE PO PRN (03:48)
[2024-04-10] MEDS ORDERED: HYDROmorphone INJ 0.5 MG/0.5 ML SYR IV PRN (03:48)
[2024-04-10] MEDS ORDERED: POLYETHYLENE (MIRALAX) 17 GM PACK PO PRN (03:48)
[2024-04-10] MEDS ORDERED: GLUCOSE 10 TAB/TUBE PO PRN (03:48)
[2024-04-10] MEDS ORDERED: GLUCAGON FOR INJ 1 MG VIAL SQ PRN (03:48)
[2024-04-10] MEDS ORDERED: DEXTROSE 50% 50 ML SYRINGE IV PRN (03:48)
[2024-04-10] MEDS ORDERED: CARBOHYDRATES FOR HYPOGLYCEMIA PO PRN (03:48)
[2024-04-10] MEDS ORDERED: ONDANSETRON INJ 2 MG/ML 2 ML VIAL IV PRN (03:48)
[2024-04-10] MEDS ORDERED: MELATONIN 3 MG TAB PO PRN (03:48)
[2024-04-10] MEDS: ACETAMINOPHEN 500 MG TAB PO SCH (03:59)
[2024-04-10] MEDS: LIDOCAINE 5% 1 PATCH TD STA (04:27)
[2024-04-10] MEDS: SODIUM CHLORIDE 0.9% 1,000 ML IV SCH (04:30)
--- NOTE | 2024-04-10 06:06 | Billing Data ---
Date of Service April 10, 2024 Coding Level of Care Code 32025 INT INP/OBS CARE
--- NOTE | 2024-04-10 07:30 | XRay Report ---
XR hip LT 2V w pelvis CLINICAL HISTORY: Left hip pain following fall. COMPARISON: Pelvis radiograph December 04, 2013. CT of the abdomen and pelvis September 08, 2020. FINDINGS: Visualized portions of the right hip arthroplasty are intact. There is no acute pelvic fra cture. Lucencies project over the greater trochanter of the left femur. This represents an acute nond isplaced fracture. No additional fractures are present. IMPRESSION: 1. Acute comminuted nondisplaced fracture of the greater trochanter of the left femur. No intertrocha nteric extension by radiography however MRI could be obtained for further evaluation. 2. Intact total right hip arthroplasty. ACT 112: Negative or not required by law. Electronically signed by: Garth Mayorga M.D. 04/10/2024 7:28 AM
[2024-04-10] MEDS: INSULIN ASPART PER UNIT CHARGE SC SCH (08:47)
[2024-04-10] MEDS: GABAPENTIN 300 MG CAP PO SCH (09:57)
[2024-04-10] MEDS: DULoxetine HCL 60 MG CAP PO SCH (09:57)
[2024-04-10] MEDS: amLODIPine BESYLATE 5 MG TAB PO SCH (09:57)
[2024-04-10] MEDS: ATENOLOL 25 MG TABLET PO SCH (09:57)
[2024-04-10] MEDS: LEVOTHYROXINE SODIUM 112 MCG TABLET PO SCH (09:57)
[2024-04-10] MEDS: lisinopril 20 MG TAB PO SCH (09:57)
[2024-04-10] MEDS: KETOROLAC TROMETHAMINE 15 MG/ML VIAL IV PRN (10:06)
[2024-04-10] MEDS: LANTUS PER UNIT CHARGE SQ SCH (10:06)
--- NOTE | 2024-04-10 10:23 | Magnetic Resonance Report ---
MRI OF THE LEFT HIP WITHOUT CONTRAST CLINICAL HISTORY: Assess trochanteric fracture. COMPARISON STUDY: Left hip radiographs and CT of the left hip April 09, 2024 TECHNIQUE: Utilizing a 1.5 Negin magnet and dedicated coil, multiplanar, multi echo imaging of the le ft hip was performed without intra-articular or intravenous contrast.. FINDINGS: Susceptibility artifact from the right hip arthroplasty is noted. There are no acute pelvic fractures. No pelvic lymphadenopathy is present. Note is made of an acute comminuted fracture of the greater trochanter of the left femur, as shown on CT. Fracture is not significantly displaced. The f racture nearly extends to the base of the lesser trochanter. No additional acute fractures are presen t. A small amount of adjacent soft tissue edema and hemorrhage is present. There are moderate degener ative changes within the left hip. There is no suspicious marrow replacement. Caliber of visualized s mall and large bowel are normal. IMPRESSION: 1. Acute comminuted fracture of the greater trochanter of the left femur with intertrochanteric compo nent which nearly extends to the base of the lesser trochanter. Small amount of adjacent edema and he morrhage. 2. No additional acute fractures within the pelvis or hips. 3. Moderate degenerative changes within the left hip. 4. Status post right hip arthroplasty. ACT 112: Negative or not required by law. Electronically signed by: Garth Mayorga M.D. 04/10/2024 10:20 AM
--- NOTE | 2024-04-10 11:05 | Hospitalist Progress Note ---
Date of Service April 10, 2024 Assessment & Plan (1) Left hip pain: Plan: Unable to ambulate following fall upon the left hip when transferring to her motorized scooter, no prodromal symptoms. Mechanical fall. Xray - acute comminuted nonsidplaced fracture of the greater trochanter of the left femur MRI - Acute comminuted fracture of the greater trochanter of the left femur with intertrochanteric component which nearly extends to the base of the lesser trochanter. Small amount of adjacent edema and hemorrhage. Orthopedics consulted - plan for OR tomorrow 04/11 Tylenol q8 (2) Type 2 diabetes mellitus with complications: Plan: Patient on metformin, insulin, and empagliflozin. Hold PO meds while inpatient. Basal: 9 units BID. SSI - adjust basal as indicated. Plan med rec not yet completed, would order home meds once completed HTN - continue home amlodipine, atenolol, lisinopril HLD - on statin therapy Anxiety - buspar PRN Chronic Pain - gabapentin, duloxetine, tramadol Hypothyroidism - levothyroxine GERD - pantoprazole DVT ppx: SCDs, if prolonged hospital stay consider chemoppx Dispo: continued inpatient stay, OR tomorrow Admission and Anticipated Discharge Date Admission Date: April 10, 2024 Supervising Physician Co-Signing Physician Notes Attending Attestation - Chart reviewed, care plan d/w RILEY Jones. I agree w/ the boyle components of her documentation. Appreciate ortho consultation. To OR tomorrow for left hip fracture ORIF. Larry Butt MD Subjective Patient seen around 11. Pain is controlled at rest but she is unable to bear weight waiting to hear from ortho at this time Review of Systems Review of Systems: All systems reviewed & are unremarkable except as noted in Subjective Physical Exam Physical Exam: General: NAD, VS as above Resp: normal respiratory effort, lungs clear to auscultation CV: RRR, no murmur, Abd: normal bowel sounds, non tender, no hepatosplenomegaly Extremities: Moves all extremities, able to move toes bilaterally Neuro: A&O x3, Skin: intact, no lesions noted Results & Data Results & Data Vital Signs (Past 12 Hours) Vital Signs Temp Pulse Pulse Pulse Resp BP Pulse Ox 04/10/24 08:10 36.7 C 71 16 139/74 95 04/10/24 07:01 75 04/10/24 06:04 77 19 147/75 H 96 04/10/24 04:42 78 18 95 04/10/24 04:37 77 20 140/74 96 04/10/24 03:00 75 19 91/75 L 95 04/10/24 01:37 74 04/10/24 01:00 70 19 158/81 H 98 04/09/24 23:19 70 17 159/84 H 96 O2 Del Method 04/10/24 08:10 Room Air 04/10/24 07:01 04/10/24 06:04 Room Air 04/10/24 04:42 Room Air 04/10/24 04:37 Room Air 04/10/24 03:00 Room Air 04/10/24 01:37 04/10/24 01:00 Room Air 04/09/24 23:19 Room Air Laboratory Results CBC and chemistry reviewed PG Care Time/CCT Total # of Minutes Spent Total Time Spent with Patient: Total time spent is greater than 50% in coordination of care (as documented) at patient's floor/unit and/or counseling patient: Coding Level of Care Code None Diagnoses Left hip pain M25.552 Type 2 diabetes mellitus with complications E11.8
[2024-04-10] MEDS: PANTOprazole 40 MG TAB PO SCH (11:28)
--- NOTE | 2024-04-10 14:45 | Orthopedic Consultation ---
Date of Service April 10, 2024 Assessment & Plan (1) Closed left hip fracture: I went over the diagnosis and treatment options with her at bedside. The fracture does extend to the greater trochanteric region. She is unable to put any weight on the hip as it is now. I am unsure if the fracture is going to p rogress in the future. We discussed conservative management versus intramedullary nail fixation. We decided the quickest road to recovery, and the way for her to put the weight on the soonest would be intramedullary nail fixation of the left hip. She understands the risk benefits alternatives to procedures elected to proceed. Questions were answered at bedside. The decision was made for surgery. I gave her a regular diet for today and put her n.p.o. past midnight tonight. We will do the procedure tomorrow morning. History of Present Illness Reason for Consultation: Left intertrochanteric hip fracture. Requesting Physician: . Attending Physician: Larry Butt MD Latoya is a pleasant 78-year-old female who lives at home with her . She is a community ambulator without assistance. She did fall yesterday. Since that time she has been on but do not put any weight on her left hip. She is able to sit up and she really cannot put any weight on it. It is quite painful. She came to the emergency room and radiographs demonstrated a greater trochanteric fracture, however, the MRI showed extension in the subtrochanteric region. Orthopedics was consulted to evaluate and treat.. Allergies Allergy/AdvReac Type Severity Reaction Status Date / Time No Known Allergies Allergy Verified 04/10/24 00:03 Home Medications Medication Instructions Recorded Confirmed Type lancets (Fantasy BuzzerTouch UltraSoft #50 ea 03/29/19 12/10/23 History Lancets) Cbd Cream 1 applic topical UD PRN Pain 09/08/20 04/10/24 History blood sugar diagnostic (OneTouch #10 ea 01/02/21 12/10/23 History Ultra Blue Test Strip) cholecalciferol (vitamin D3) 25 2,000 unit PO DAILY 01/11/21 04/10/24 History mcg (1,000 unit) tablet (Vitamin D3) multivitamin 1 tab PO DAILY 02/02/22 04/10/24 History buspirone 5 mg tablet 5 mg PO BID PRN anxiety #60 tabs 04/01/23 04/10/24 Rx pen needle, diabetic 31 gauge x #200 ea 04/24/23 12/10/23 Rx 5/16" (BD Ultra-Fine Short Pen Needle) duloxetine 60 mg capsule,delayed 60 mg PO DAILY #90 caps 05/01/23 04/10/24 Rx release levothyroxine 112 mcg tablet 112 mcg PO DAILY #90 tabs 10/29/23 04/10/24 Rx empagliflozin 25 mg tablet 25 mg PO DAILY #30 tabs 11/29/23 04/10/24 Rx (Jardiance) semaglutide 1 mg/dose (4 mg/3 mL) 1 mg (0.75 mL) subcut ONCE #3 mL 12/10/23 04/10/24 Rx subcutaneous pen injector (Ozempic) pantoprazole 20 mg tablet,delayed 20 mg PO DAILY #90 tabs 12/11/23 04/10/24 Rx release metformin 500 mg tablet 500 mg PO BIDWMEAL #180 tabs 01/31/24 04/10/24 Rx simvastatin 20 mg tablet 20 mg PO QPM #90 tabs 02/21/24 04/10/24 Rx amlodipine 5 mg tablet 5 mg PO DAILY #90 tabs 02/24/24 04/10/24 Rx atenolol 25 mg tablet 25 mg PO BID #180 tabs 02/24/24 04/10/24 Rx lisinopril 20 mg tablet 20 mg PO DAILY #90 tabs 02/24/24 04/10/24 Rx gabapentin 300 mg capsule 300 mg PO TID #270 caps 03/18/24 04/10/24 Rx insulin degludec 100 unit/mL (3 36 unit subcut HS 04/10/24 04/10/24 History mL) subcutaneous pen (Tresiba FlexTouch U-100 insulin) tramadol 50 mg tablet 50 - 100 mg (1 - 2 x 50 mg) PO TID 04/10/24 Rx PRN pain #180 tabs trazodone 50 mg tablet 50 mg PO HS PRN insomnia 04/10/24 04/10/24 History Past Med/Surg History Problem List (Updated 04/10/24 @ 14:44 by Primo Alvarez DO) Closed left hip fracture Contusion of hip, left Ambulatory dysfunction (Acute) Abrasion of left elbow (Acute) Fall (Acute) Left hip pain (Acute) Osteopenia after menopause GERD (gastroesophageal reflux disease) Chronic anemia Albuminuria Arthritis Chronic low back pain Depression with anxiety Diabetic nephropathy associated with type 2 diabetes mellitus Dyslipidemia Hypertension Hypothyroidism Lung nodule Overweight Sleep apnea Solitary thyroid nodule Spinal stenosis Type 2 diabetes mellitus with complications Umbilical hernia Vitamin D insufficiency History of fatty infiltration of liver Chronic renal disease, stage 3, moderately decreased glomerular filtration rate (GFR) between 30-59 mL/min/1.73 square meter Diabetes type 2, controlled Proteinuria Situational stress Stage 3b chronic kidney disease Medical History History of uterine cancer Eric's thyroiditis Surgical History History of total hip replacement Right TKA History of tooth extraction History of cholecystectomy History of section Low transverse Family history of total abdominal hysterectomy and bilateral salpingo- oophorectomy (SHAWN-BSO) Family History Mother Coronary heart disease Hypertension Father Myocardial infarction Uncle Myocardial infarction Aunt Breast cancer 2 aunts had breast can Denies family history of Ovarian cancer Prostate cancer Colorectal cancer Social History Smoking Status: Never smoker Second Hand Exposure: No; Do You Dip or Chew Tobacco: No; Hx Alcohol Use: No Hx Substance Use: No Preferred Language: Kiswahili Communication Ability: Effective Hearing Ability: Normal Claim Benefit Specialist Required: No Beliefs That Will Affect Care: None marital status: Current Living Situation: Spouse current occupational status: retired current occupation: [employer] attendant How many Children do You have: 2 Feels Safe at Home: Yes Childhood Exposure to Second-Hand Smoke: No Diet: regular caffeine: Yes Dental Care, Regularly: Yes Physical Activity Frequency: 1-2 Times per Week Seatbelt Use: always Sunscreen Use: Yes Assistive Devices: Cane Review of Systems All systems reviewed & are unremarkable except as noted in HPI & below. Physical Exam On physical exam of the left hip, she does not have much pain with straight leg raise but she does have pain with internal/external rotation. Most of her pain is located in the groin.. Constitutional WD/WN, vitals as above Eyes PERRL, conjunctivae normal, anicteric sclerae ENMT external ear and nose normal, oropharynx normal Neck trachea midline, no thyromegaly Respiratory normal respiratory effort Cardiovascular RRR, no murmur, no edema Gastrointestinal (Abdomen) normal bowel sounds, soft, nontender, no hepatosplenomegaly Psychiatric A+Ox3, euthymic affect Results & Data Results & Data Laboratory Results . Diagnostic Findings X-rays of the left hip show a small nondisplaced fracture in the greater trochanteric region MRI of the left hip shows a comminuted grade 2 icteric hip fracture with extension into the intertrochanteric region.. PG Care Time/CCT Total # of Minutes Spent Total Time Spent with Patient: Total time spent is greater than 50% in coordination of care (as documented) at patient's floor/unit and/or counseling patient: Coding Level of Care Code 99368 IN/OBS CONSULT LVL 4,60M (57 - DECISION FOR SURGERY) Diagnoses Closed left hip fracture S72.002A
[2024-04-10] MEDS: SIMVASTATIN 20 MG TAB PO SCH (19:38)
[2024-04-10] MEDS ORDERED: Nursing to Pharmacy Communication SCH (21:15)
[2024-04-11] MEDS: INSULIN ASPART PER UNIT CHARGE SC SCH (00:28)
[2024-04-11] MEDS: busPIRone 5 MG TAB PO PRN (01:41)
[2024-04-11] MEDS ORDERED: fentaNYL citrate PF 100 MCG/2 ML VIAL ONE ×2 (07:03→08:02)
--- NOTE | 2024-04-11 07:19 | History & Physical Bridge Note ---
Date of Service April 11, 2024 History & Physical Bridge Note I have examined the patient, reviewed the History & Physical and in the interval since the performance of the History & Physical I have noted the following changes of clinical significance: no changes noted
[2024-04-11] MEDS ORDERED: ONDANSETRON INJ 2 MG/ML 2 ML VIAL IV PRN (07:20)
[2024-04-11] MEDS ORDERED: ePHEDrine sulfate 50 MG/ML AMP IV PRN (07:20)
[2024-04-11] MEDS ORDERED: ATROPINE SULFATE 0.1 MG/ML 10ML SYR IV PRN (07:20)
--- NOTE | 2024-04-11 07:20 | Anesthesiology Consultation ---
Date of Service April 11, 2024 Assessment & Plan Chart Review Chart Review: Acceptable Risk for Surgery and Patient NOT seen in Pre Admission Testing Consults Requested none ASA ASA3 Proposed Anesthesia Anesthesia Type: General Risk / Benefits Reviewed With: PT / POA / Parent / Guardian, Accepts Plan and Informed Consent Obtained History Surgery Operation Date: 04/11/24 07:30 Proposed Procedures p Left Short Intramedullary Nail Femur - Primo Alvarez, DO Height/Weight Height: 5 ft 1 in Weight: 91.8 kg Allergies Allergy/AdvReac Type Severity Reaction Status Date / Time No Known Allergies Allergy Verified 04/10/24 00:03 Medications Home Medications Medication Instructions Recorded Confirmed Last Taken lancets (OneTouch UltraSoft #50 ea 03/29/19 12/10/23 Unknown Lancets) Cbd Cream 1 applic topical UD PRN Pain 09/08/20 04/10/24 Unknown blood sugar diagnostic (OneTouch #10 ea 01/02/21 12/10/23 Unknown Ultra Blue Test Strip) cholecalciferol (vitamin D3) 25 2,000 unit PO DAILY 01/11/21 04/10/24 04/09/24 mcg (1,000 unit) tablet (Vitamin D3) multivitamin 1 tab PO DAILY 02/02/22 04/10/24 04/09/24 buspirone 5 mg tablet 5 mg PO BID PRN anxiety #60 tabs 04/01/23 04/10/24 Unknown pen needle, diabetic 31 gauge x #200 ea 04/24/23 12/10/23 Unknown 5/16" (BD Ultra-Fine Short Pen Needle) duloxetine 60 mg capsule,delayed 60 mg PO DAILY #90 caps 05/01/23 04/10/24 04/09/24 release levothyroxine 112 mcg tablet 112 mcg PO DAILY #90 tabs 10/29/23 04/10/24 04/09/24 empagliflozin 25 mg tablet 25 mg PO DAILY #30 tabs 11/29/23 04/10/24 04/09/24 (Jardiance) semaglutide 1 mg/dose (4 mg/3 mL) 1 mg (0.75 mL) subcut ONCE #3 mL 12/10/23 04/10/24 04/07/24 subcutaneous pen injector (Ozempic) FORGOT SATURDAY pantoprazole 20 mg tablet,delayed 20 mg PO DAILY #90 tabs 05/01/24 08/30/24 08/29/24 release metformin 500 mg tablet 500 mg PO BIDWMEAL #180 tabs 01/31/24 04/10/24 04/09/24 simvastatin 20 mg tablet 20 mg PO QPM #90 tabs 02/21/24 04/10/24 04/09/24 amlodipine 5 mg tablet 5 mg PO DAILY #90 tabs 02/24/24 04/10/24 04/10/24 atenolol 25 mg tablet 25 mg PO BID #180 tabs 02/24/24 04/10/24 04/09/24 lisinopril 20 mg tablet 20 mg PO DAILY #90 tabs 02/24/24 04/10/24 04/10/24 gabapentin 300 mg capsule 300 mg PO TID #270 caps 03/18/24 04/10/24 04/09/24 insulin degludec 100 unit/mL (3 36 unit subcut HS 04/10/24 04/10/24 04/08/24 mL) subcutaneous pen (Tresiba FlexTouch U-100 insulin) tramadol 50 mg tablet 50 - 100 mg (1 - 2 x 50 mg) PO TID 04/10/24 Unknown PRN pain #180 tabs trazodone 50 mg tablet 50 mg PO HS PRN insomnia 04/10/24 04/10/24 Unknown Active Medications Generic Name Dose Route Start Last Admin Trade Name Freq PRN Reason Stop Dose Admin Acetaminophen 1,000 mg 04/10/24 03:48 04/11/24 02:59 Acetaminophen 500 Mg Tab PO 05/10/24 03:47 1,000 mg Q8H ERIC Administration Amlodipine Besylate 5 mg 04/10/24 09:00 04/10/24 09:57 Amlodipine Besylate 5 Mg Tab PO 05/10/24 08:59 5 mg DAILY ERIC Administration Atenolol 25 mg 04/10/24 09:00 04/10/24 19:42 Atenolol 25 Mg Tablet PO 05/10/24 08:59 25 mg BID ERIC Administration Buspirone HCl 5 mg 04/10/24 08:30 04/11/24 01:41 Buspirone 5 Mg Tab PO 05/10/24 08:29 5 mg BID PRN Administration anxiety Duloxetine HCl 60 mg 04/10/24 09:00 04/10/24 09:57 Duloxetine Hcl 60 Mg Cap PO 05/10/24 08:59 60 mg DAILY ERIC Administration Gabapentin 300 mg 04/10/24 09:00 04/10/24 19:37 Gabapentin 300 Mg Cap PO 05/10/24 08:59 300 mg TID ERIC Administration Insulin Aspart 0 units 04/11/24 00:00 04/11/24 06:10 Insulin Aspart Per Unit Charge SC 05/11/24 00:00 Not Given Q6 ERIC Insulin Glargine 9 units 04/10/24 09:00 04/10/24 20:47 Lantus Per Unit Charge SQ 05/10/24 08:59 9 units BID ERIC Administration Ketorolac Tromethamine 15 mg 04/10/24 03:48 04/10/24 10:06 Ketorolac Tromethamine 15 Mg/Ml Vial IV 04/15/24 03:47 15 mg Q6H PRN Administration Pain Levothyroxine Sodium 112 mcg 04/10/24 09:00 04/11/24 05:22 Levothyroxine Sodium 112 Mcg Tablet PO 05/10/24 08:59 112 mcg DAILYBB ERIC Administration Lisinopril 20 mg 04/10/24 09:00 04/10/24 09:57 Lisinopril 20 Mg Tab PO 05/10/24 08:59 20 mg DAILY ERIC Administration Pantoprazole Sodium 40 mg 04/10/24 09:00 04/10/24 11:28 Pantoprazole 40 Mg Tab PO 05/10/24 08:59 40 mg DAILY ERIC Administration Simvastatin 20 mg 04/10/24 21:00 04/10/24 19:38 Simvastatin 20 Mg Tab PO 05/10/24 20:59 20 mg QPM ERIC Administration NPO Date Last Intake of Fluids: 04/10/24 Time Last Intake of Fluids: 22:29 Date Last Intake of Solids: 04/10/24 Time Last Intake of Solids: 17:30 Past Medical History Medical History History of uterine cancer Eric's thyroiditis Exercise / Class Metabolic Activity II 4-5 Yardwork/Stairs/Walk up hill Past Family History Family History Mother Coronary heart disease Hypertension Father Myocardial infarction Uncle Myocardial infarction Aunt Breast cancer 2 aunts had breast can Denies family history of Ovarian cancer Prostate cancer Colorectal cancer Past Surgical History Surgical History History of total hip replacement Right TKA History of tooth extraction History of cholecystectomy History of section Low transverse Family history of total abdominal hysterectomy and bilateral salpingo- oophorectomy (SHAWN-BSO) Past Anesthesia History No Hx of Anesthesia Complications and No Family Hx of Anesthesia Complications History of PONV No Hx of PONV and No Hx of Motion Sickness Social History Smoking Status: Never smoker Do You Dip or Chew Tobacco: No Hx Alcohol Use: No Alcohol type: other Hx Substance Use: No Physical Exam Vital Signs Last Vital Signs Temp 36.6 C 04/10/24 19:40 Pulse 72 04/10/24 19:40 Resp 18 04/10/24 19:40 BP 133/69 04/10/24 19:40 Pulse Ox 93 04/10/24 19:40 O2 Del Method Room Air 04/10/24 19:40 Constitutional + obese ENMT Mouth: no dentition abnormality Thyromental Distance: > or= 3.5 Finger Breadths Mallampati Class: II Neck normal visual inspection Respiratory normal respiratory effort Auscultation: lungs clear to auscultation bilaterally Cardiovascular Rate/Rhythm: regular rate and regular rhythm Psychiatric Orientation: alert Testing Laboratory Results 04/10/24 02:58 04/10/24 02:58 04/11/24 04/11/24 04/10/24 05:56 00:22 20:31 POC Glucose 98 109 H 131 H
[2024-04-11] MEDS: ceFAZolin 2000MG 2,000 MG/15 ML SYR IV ONE (07:40)
[2024-04-11] MEDS ORDERED: LIDOCAINE 2% 2 ML VIAL/AMP(20MG/ML) INFIL ONE (07:57)
[2024-04-11] MEDS ORDERED: ePHEDrine sulfate 50 MG/5 ML SYR ONE (07:57)
[2024-04-11] MEDS ORDERED: ONDANSETRON INJ 2 MG/ML 2 ML VIAL ONE (07:57)
[2024-04-11] MEDS ORDERED: SUGAMMADEX SODIUM 200 MG/2 ML VIAL IV ONE (07:57)
[2024-04-11] MEDS ORDERED: ROCURONIUM BROMIDE 10 MG/ML 5 ML VIAL IV ONE (07:57)
[2024-04-11] MEDS ORDERED: PROPOFOL IV EMULSION 10 MG/ML 20 ML VIAL IV ONE (07:57)
[2024-04-11] MEDS: BUPIVACAINE/EPINEPHRINE 0.25% 1:200,000 30 ML VIAL ONE (08:20)
--- NOTE | 2024-04-11 08:23 | Hospitalist Progress Note ---
Date of Service April 11, 2024 Assessment & Plan (1) Left hip pain: Plan: Mechanical fall at home; unable to ambulate following fall upon the left hip when transferring to her motorized scooter, no prodromal symptoms. - Xray - acute comminuted nonsidplaced fracture of the greater trochanter of the left femur - MRI - Acute comminuted fracture of the greater trochanter of the left femur with intertrochanteric component which nearly extends to the base of the lesser trochanter. Small amount of adjacent edema and hemorrhage. - Orthopedics consulted > Intramedullary nail fixation of left hip with Dr. Alvarez on 04/11/24. EBL 100 cc. No complications noted. - Acute blood loss anemia secondary to surgery. Hgb stable at 9.8. Continue to monitor. No indication for blood transfusion at this time. - Lisinopril held due to CHAUNCEY. - Continue Eliquis 2.5 mg BID for DVT prophylaxis. - PT/OT consulted - Pain regimen: Tylenol 1 g scheduled Q8H Ultram 50 mg Q4H PRN Will discontinue Toradol 15 mg Q6H PRN given acute kidney injury Dilaudid 0.25 - 0.5 mg Q4H PRN (2) Corneal abrasion, left: Plan: Patient reported left eye discomfort postop - Left eye with redness and excessive tearing, reported blurry vision. PERRLA. EOM intact bilaterally. - No swelling, crusting, or stringy discharge noted to indicate infectious etiology. - Suspect corneal abrasion secondary to eyes being taped closed during surgery. - Will start antibiotic eye drops as prophylaxis --> Polytrim 1 drop OS Q3HWA x 7 days. 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 Hold PO meds while inpatient. Basal: 9 units BID. SSI - adjust basal as indicated. Plan Started prophylactic antibiotic eyedrops Held Lisinopril Reviewed operative report Chronic stable problems: * HTN - continue home amlodipine, atenolol, but hold home lisinopril * HLD - continue simvastatin * Anxiety - continue buspar PRN * Chronic Pain - continue gabapentin, duloxetine, tramadol * Hypothyroidism - continue levothyroxine * GERD - continue pantoprazole DVT ppx: Eliquis 2.5 mg BID CODE STATUS: Full code Admission and Anticipated Discharge Date Admission Date: April 10, 2024 Supervising Physician Co-Signing Physician Notes PA Supervision Note: I did not personally see or examine the patient today, but I verified all boyle points of RILEY North' assessment and plan with the following exceptions/additions: None Subjective Patient seen and evaluated at bedside postop. She had intramedullary nail fixation of her left hip this morning with Dr. Alvarez. She reports that she is feeling well. She notes that her pain is well-controlled. Denies shortness of breath, difficulty breathing, cough, chest pain, palpitations, lightheadedness, dizziness, nausea. She reports she had lunch and it was well-tolerated. She has not been out of bed yet. Patient reported some left eye irritation. She reports it "feels like an eyelash is stuck in my eye." She reports some blurry vision secondary to her eye watering. She denies photophobia, itchiness, stinging/burning sensation, severe pain, vision loss, or dark/floating spots in her visual field. She does not wear contacts. No additional complaints or concerns at this time. Physical Exam Physical Exam: General: No acute distress, nondiaphoretic, well-developed, well-nourished. HEENT: Left eye with excessive tearing, some increased redness noted. PERRLA. EOM intact bilaterally. No swelling, crusting, or stringy discharge noted. Skin: The skin was without rashes, erythema, edema, or bruising. Cardiac: Regular rate and rhythm without murmurs gallops or rubs. Pulm: Clear to auscultation bilaterally without wheezes, rales or rhonchi. No respiratory distress. 92% on room air. Abdominal: Soft, nontender, nondistended. Bowel sounds present. Neuro: A&O x3. No focal neurological deficits. Extremities: Soft dressings in place postop L hip, clean, dry, intact. Able to wiggle toes bilaterally. Sensation intake bilaterally. : Beckman draining clear yellow urine. Results & Data Results & Data Laboratory Results Reviewed CBC Reviewed BMP PG Care Time/CCT Total # of Minutes Spent Total Time Spent with Patient: Total time spent is greater than 50% in coordination of care (as documented) at patient's floor/unit and/or counseling patient: Coding Level of Care Code 10309 SUB INP/OBS CARE 3/50MIN Diagnoses Left hip pain M25.552 Corneal abrasion, left S05.02XA Type 2 diabetes mellitus with complications E11.8
--- NOTE | 2024-04-11 08:45 | Operative Report ---
PG Post Operative Report Pre & Post Diagnosis Operation Date: 04/11/24 07:30 Pre-Op Diagnosis: Left intertrochanteric hip fracture Post-Op Diagnosis: Left intertrochanteric hip fracture I identified the patient and participated in the time-out.: Yes Procedure Operation Date: 04/11/24 07:30 Actual Procedures p Left Short Intramedullary Nail Femur(Left) - Primo Alvarez DO Surgeon Primo Alvarez DO Supervisor Sewing Room None Estimated Blood Loss 100 Findings Consistent with Post-Op Diagnosis Specimens None Description of Procedure On April 11, 2024 Latoya was brought down from her hospital room to the preoperative holding area. The operative extremity was identified and signed. She was given a preoperative antibiotic. She was taken back to the operative room and put under general anesthesia. She was then transferred to a fracture table. The left leg was brought to traction. The left hip was then prepped and draped in sterile fashion. A timeout was done. The patient and the operative extremity was properly identified. A longitudinal incision was made just superior to the greater trochanter. Dissection was taken down through the fascia. A guidepin was placed at the tip of the greater trochanter and advanced into the femoral canal. Appropriate placement of this guidepin was checked on orthogonal fluoroscopic images. A 17 mm opening reamer was used to open the tip of the greater trochanter. A Synthes 10 mm TFN short nail was then impacted into place. Appropriate placement was checked on fluoroscopy. A small lateral incision was made and a cannula was advanced for the helical blade. A guidepin was then placed into the center center position of the femoral head. The lateral cortex was drilled and the helical blade was drilled. The final 95 mm helical blade was then impacted into place. The plate was then locked with the setscrew. A cannula was then advanced for the distal locking screw. The distal locking screw was then placed. Appropriate placement was checked on fluoroscopy. The outrigger was then removed. Final fluoroscopic images showed anatomic alignment of the fracture and good placement of the hardware. The wounds were then irrigated. The deep tissue was closed with #1 Vicryl. Skin was closed with 2-0 Vicryl and issa. She was placed in soft dressings. She was then extubated and transferred back to a hospital bed. She was taken to the postanesthesia care unit in stable condition. She tolerated the procedure well. I attest to the content of the Intraoperative Record and any orders documented therein. Any exceptions are noted below.
--- NOTE | 2024-04-11 08:56 | Fluoroscopy Report ---
FL hip LT 2-3V CLINICAL HISTORY: LT TROCH NAIL COMPARISON STUDY: Left hip radiographs and left hip CT April 09, 2024. MRI of the left hip March [id number]. FLUOROSCOPY TIME: 41 seconds. Ka,r: 15.25 mGy FLUOROSCOPIC IMAGES: 4 FINDINGS: Fluoroscopy was provided during open reduction and internal fixation of the intertrochanter ic fracture of the left femur trochanteric nail. Fracture alignment appears anatomic. Hardware is int act. No unexpected radiopaque foreign bodies. IMPRESSION: Fluoroscopy provided during open reduction and internal fixation of the intertrochanteri c fracture of the left femur. ACT 112: Negative or not required by law. Electronically signed by: Garth Mayorga M.D. 04/11/2024 8:55 AM
[2024-04-11] MEDS: fentaNYL citrate PF 100 MCG/2 ML VIAL IV PRN (09:03)
[2024-04-11] MEDS: fentaNYL citrate PF 100 MCG/2 ML VIAL ONE ×2 (09:11→14:22)
--- NOTE | 2024-04-11 09:14 | Anesthesiology Progress Note ---
Date of Service April 11, 2024 Anesthesia Post Procedure Vital Signs Vital Signs: Temp Pulse Pulse Resp BP BP Pulse Ox 04/11/24 09:10 66 14 152/73 H 99 04/11/24 09:00 67 12 163/75 H 94 04/11/24 08:50 70 14 172/85 H 99 04/11/24 08:43 36.2 C L 72 19 179/75 H 96 04/10/24 19:40 36.6 C 72 18 133/69 93 04/10/24 11:41 36.5 C 72 17 144/78 H 96 O2 Del Method O2 Flow Rate 04/11/24 09:10 Nasal Cannula 3 04/11/24 09:00 Room Air 04/11/24 08:50 Oxymask 5 04/11/24 08:43 Oxymask 5 04/10/24 19:40 Room Air 04/10/24 11:41 Room Air Pain Intensity Left Hip: Pain Intensity: 5 Transfer of Care Handoff Completed per policy Notes Mental Status: alert / awake / arousable Patient Amnestic to Procedure: Yes Nausea / Vomiting: adequately controlled Pain: adequately controlled Airway Patency, RR, SpO2: stable & adequate BP & HR: stable & adequate Hydration State: stable & adequate Anesthetic Complications: no major complications apparent
[2024-04-11] MEDS: HYDROmorphone INJ 0.5 MG/0.5 ML SYR IV PRN (11:12)
[2024-04-11] MEDS: APIXABAN 2.5 MG TAB PO SCH (12:28)
[2024-04-11 13:03] LABS: Hematocrit (blood only) 31.7 % (37.0-47.0); Hemoglobin 9.8 g/dl (12.0-16.0); Mean Corpuscular Hemoglobin 25.3 pg (25.0-34.0); Mean Corpuscular Hgb Conc 30.9 g/dL (32.0-36.0); Mean Corpuscular Volume 81.7 fL (80.0-100.0); Mean Platelet Volume 10.4 fL (9.4-12.4); Platelet Count 163 K/uL (130-400); RDW Coefficient of Variation 14.7 % (11.5-14.5); RDW Standard Deviation 43.4 fL (36.4-46.3); Red Blood Count 3.88 M/uL (4.20-5.40); White Blood Count 10.56 K/ul (4.8-10.8)
[2024-04-11 13:08] LABS: BUN Creatinine Ratio 20.5 (10-20); Calcium 8.1 mg/dl (8.6-10.3); Creatinine Clr Calc Pharmacy 31.7 ml/min; Est GFR (Non-African American) 31.9 ml/min
[2024-04-11] MEDS: ceFAZolin 2000MG 2,000 MG/15 ML SYR IV SCH (15:03)
[2024-04-11] MEDS: traMADol HCL 50 MG TABLET PO PRN (15:35)
[2024-04-11] MEDS: TRIMETHOPRIM/POLYMYXIN B OPL SCH (20:42)
[2024-04-11] MEDS ORDERED: Nursing to Pharmacy Communication SCH (23:30)
[2024-04-12 06:29] LABS: Basophils # (auto) 0.02 K/uL (0.00-0.20); Basophils % (auto) 0.3 %; Eosinophils # (auto) 0.26 K/uL (0.00-0.50); Eosinophils % (auto) 3.4 %; Immature Granulocytes # (auto) 0.03 K/uL (0.01-0.20); Immature Granulocytes % (auto) 0.4 %; Lymphocytes # (auto) 0.87 K/uL (1.20-3.40); Lymphocytes % (auto) 11.5 %; Mean Corpuscular Hemoglobin 25.2 pg (25.0-34.0); Mean Corpuscular Volume 81.2 fL (80.0-100.0); Mean Platelet Volume 10.3 fL (9.4-12.4); Monocytes # (auto) 0.63 K/uL (0.11-0.59); Monocytes % (auto) 8.3 %; Neutrophils # (auto) 5.75 K/uL (1.40-6.50); Neutrophils % (auto) 76.1 %; Platelet Count 150 K/uL (130-400); RDW Coefficient of Variation 15.2 % (11.5-14.5); RDW Standard Deviation 45.1 fL (36.4-46.3); Red Blood Count 3.57 M/uL (4.20-5.40); White Blood Count 7.56 K/ul (4.8-10.8)
[2024-04-12 06:37] LABS: BUN Creatinine Ratio 20.9 (10-20); Creatinine Clr Calc Pharmacy 31.3 ml/min; Est GFR (African American) 36.5 ml/min; Est GFR (Non-African American) 31.5 ml/min; Potassium 4.8 mmol/L (3.5-5.1)
--- NOTE | 2024-04-12 07:49 | Orthopedic Progress Note ---
Date of Service April 12, 2024 Assessment & Plan (1) Closed left hip fracture: Overall she is doing fairly well. She is optimistic that her hip does not hurt as much when she puts weight on it. She can be weightbearing as tolerated on the left hip. She is on Eliquis 2.5 mg twice a day for DVT prophylaxis and will likely continue that for 4 weeks after the surgery. She is orthopedically stable for discharge when medically ready. Full orthopedic discharge instructions were placed in the discharge summary. Mabel Klein was seen and examined at bedside this morning. Overall she is doing fairly well. She was able to ambulate some yesterday. She says she is having some soreness from the surgery but the acute sharp pain she was having before the surgery with ambulation is gone.. Review of Systems All systems reviewed & are unremarkable except as noted in HPI & below. Physical Exam On physical examination of left hip, the dressings have a little bit of bloody drainage on him but not much.. Results & Data Results & Data Laboratory Results . Diagnostic Findings . PG Care Time/CCT Total # of Minutes Spent Total Time Spent with Patient: Total time spent is greater than 50% in coordination of care (as documented) at patient's floor/unit and/or counseling patient: Coding Level of Care Code 26686 Post Operative Follow-Up Diagnoses Closed left hip fracture S72.002A
--- NOTE | 2024-04-12 08:23 | Hospitalist Progress Note ---
Date of Service April 12, 2024 Assessment & Plan (1) Left hip pain: Plan: Mechanical fall at home; unable to ambulate following fall upon the left hip when transferring to her motorized scooter, no prodromal symptoms. - Xray - acute comminuted nonsidplaced fracture of the greater trochanter of the left femur - MRI - Acute comminuted fracture of the greater trochanter of the left femur with intertrochanteric component which nearly extends to the base of the lesser trochanter. Small amount of adjacent edema and hemorrhage. - Orthopedics consulted > Intramedullary nail fixation of left hip with Dr. Alvarez on 04/11/24. EBL 100 cc. No complications noted. > WBAT on left hip. Orthopedically stable for discharge when medically ready. - Acute blood loss anemia secondary to surgery. Hgb stable at 9.0. Continue to monitor. No indication for blood transfusion at this time. - Lisinopril held due to CHAUNCEY. - Vit D level low at 25. Start Vit D3 supplementation at 125 mcg daily for 2 weeks, then reduce to 25 mcg daily. Recommend rechecking Vit D level in 3-4 months. - Continue Eliquis 2.5 mg BID for DVT prophylaxis. Continue this x 4 weeks postop, per ortho. - PT/OT consulted: PT recommends short term rehab, OT recommending home health. - Pain regimen: Tylenol 1 g scheduled Q8H Ultram 50 mg Q4H PRN Toradol 15 mg Q6H PRN Dilaudid 0.25 - 0.5 mg Q4H PRN (2) Corneal abrasion, left: Plan: Patient reported left eye discomfort postop - Left eye with redness and excessive tearing, reported blurry vision. PERRLA. EOM intact bilaterally. - No swelling, crusting, or stringy discharge noted to indicate infectious etiology. - Suspect corneal abrasion secondary to eyes being taped closed during surgery. - Continue prophylactic Polytrim 1 drop OS Q3HWA x 7 days. 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 Hold PO meds while inpatient. Basal: 9 units BID. SSI - adjust basal as indicated. Plan Started Vit D3 supplementation Reviewed BPs, stable Continue to hold lisinopril due to CHAUNCEY Chronic stable problems: * HTN - continue home amlodipine, atenolol, lisinopril * HLD - continue simvastatin * Anxiety - continue buspar PRN * Chronic Pain - continue gabapentin, duloxetine, tramadol * Hypothyroidism - continue levothyroxine * GERD - continue pantoprazole DVT ppx: Eliquis 2.5 mg BID CODE STATUS: Full code Admission and Anticipated Discharge Date Admission Date: April 10, 2024 Supervising Physician Co-Signing Physician Notes PA Supervision Note: I did not personally see or examine the patient today, but I verified all boyle points of RIELY North' assessment and plan with the following exceptions/additions: None Subjective Patient seen and evaluated at bedside. She reports that she is feeling much better today. She has been out of bed and ambulating without much difficulty. She reports her pain is well-controlled, rates it a 1/10 currently. She also notes that her left eye is feeling better as well. She notes some increased t earing still, but denies the discomfort/pain she experienced yesterday. She states that her appetite is good, she had a bowel movement today, and had her Beckman catheter removed earlier. 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 She would like to talk with case management. No additional complaints or concerns at this time. Physical Exam Physical Exam: General: No acute distress, nondiaphoretic, well-developed, well-nourished. HEENT: Left eye with excessive tearing. PERRLA. EOM intact bilaterally. No redness, swelling, crusting, or stringy discharge noted. Skin: The skin was without rashes, erythema, edema, or bruising. Cardiac: Regular rate and rhythm without murmurs gallops or rubs. Pulm: Clear to auscultation bilaterally without wheezes, rales or rhonchi. No respiratory distress. 92% on room air. Abdominal: Soft, nontender, nondistended. Bowel sounds present. Neuro: A&O x3. No focal neurological deficits. Extremities: Soft dressings in place postop L hip, clean, dry, intact. Able to wiggle toes bilaterally. Sensation intake bilaterally. Results & Data Results & Data Vital Signs (Past 12 Hours) Vital Signs Temp Pulse Pulse Resp BP BP Pulse Ox 04/12/24 07:54 36.6 C 76 14 146/68 H 90 09/01/24 07:22 36.6 C 63 16 147/70 H 94 04/12/24 00:16 04/11/24 23:33 36.8 C 77 18 150/74 H 95 O2 Del Method O2 Flow Rate 04/12/24 07:54 Room Air 04/12/24 07:22 Nasal Cannula 1 04/12/24 00:16 Nasal Cannula 2 04/11/24 23:33 Room Air Laboratory Results Reviewed CBC Reviewed BMP PG Care Time/CCT Total # of Minutes Spent Total Time Spent with Patient: Total time spent is greater than 50% in coordination of care (as documented) at patient's floor/unit and/or counseling patient: Coding Level of Care Code 73725 SUB INP/OBS CARE 2/35MIN Diagnoses Left hip pain M25.552 Corneal abrasion, left S05.02XA Type 2 diabetes mellitus with complications E11.8
[2024-04-12] MEDS: INSULIN ASPART PER UNIT CHARGE SC SCH (08:31)
[2024-04-12] MEDS: CHOLECALCIFEROL 125 MCG (5,000 UNITS) TAB PO SCH (10:29)
[2024-04-13 06:07] LABS: Hematocrit (blood only) 28.2 % (37.0-47.0); Hemoglobin 8.5 g/dl (12.0-16.0); Mean Corpuscular Hemoglobin 25.1 pg (25.0-34.0); Mean Corpuscular Hgb Conc 30.1 g/dL (32.0-36.0); Mean Corpuscular Volume 83.4 fL (80.0-100.0); Mean Platelet Volume 9.9 fL (9.4-12.4); Platelet Count 154 K/uL (130-400); RDW Coefficient of Variation 15.7 % (11.5-14.5); RDW Standard Deviation 47.6 fL (36.4-46.3); Red Blood Count 3.38 M/uL (4.20-5.40); White Blood Count 7.22 K/ul (4.8-10.8)
[2024-04-13 06:21] LABS: BUN Creatinine Ratio 21.5 (10-20); Calcium 8.3 mg/dl (8.6-10.3); Est GFR (African American) 46.2 ml/min; Est GFR (Non-African American) 39.8 ml/min; Potassium 4.4 mmol/L (3.5-5.1)
--- NOTE | 2024-04-13 09:21 | Orthopedic Progress Note ---
Date of Service April 13, 2024 Assessment & Plan (1) Closed left hip fracture: Overall she is doing fairly well. She is not having too much pain in the left hip. She can be weightbearing as tolerated. She is on Eliquis 2.5 mg twice a day for DVT prophylaxis and she should continue that for the next 4 weeks. She is orthopedically stable for discharge when medically ready. Full orthopedic discharge instructions were placed in the discharge summary. Please contact me if you need any further assistance. Mabel Klein was seen and examined at bedside this morning. Overall she is doing fairly well. She is very happy she had the procedure done. She has much less pain in her hip. Still little sore from the surgery. She has been participating well with physical therapy. She has no complaints.. Review of Systems All systems reviewed & are unremarkable except as noted in HPI & below. Physical Exam On physical examination of the left hip, the dressing has been changed. Her leg is out full extension. She has active dorsiflexion plantarflexion of her left ankle.. Results & Data Results & Data Laboratory Results . Diagnostic Findings . PG Care Time/CCT Total # of Minutes Spent Total Time Spent with Patient: Total time spent is greater than 50% in coordination of care (as documented) at patient's floor/unit and/or counseling patient: Coding Level of Care Code 67000 Post Operative Follow-Up Diagnoses Closed left hip fracture S72.002A
--- NOTE | 2024-04-13 12:54 | Hospitalist Progress Note ---
Date of Service April 13, 2024 Assessment & Plan (1) Left hip pain: Plan: Mechanical fall at home; unable to ambulate following fall upon the left hip when transferring to her motorized scooter, no prodromal symptoms. - Xray - acute comminuted nonsidplaced fracture of the greater trochanter of the left femur - MRI - Acute comminuted fracture of the greater trochanter of the left femur with intertrochanteric component which nearly extends to the base of the lesser trochanter. Small amount of adjacent edema and hemorrhage. - Orthopedics consulted > Intramedullary nail fixation of left hip with Dr. Alvarez on 04/11/24. EBL 100 cc. No complications noted. > WBAT on left hip. Orthopedically stable for discharge when medically ready. - Acute blood loss anemia secondary to surgery. Hgb continues to drop slightly, 8.5 on 04/13. No signs of active bleeding, suspect this is secondary to acute fracture, surgical intervention, and inpatient blood draws. Continue to monitor. No indication for blood transfusion at this time. - Lisinopril held due to CHAUNCEY. Cr improved to baseline of 1.3 - Lisinopril to resume 04/14. - Vit D level low at 25. Started and to continue Vit D3 supplementation at 125 mcg daily for 2 weeks, then reduce to 25 mcg daily. Recommend rechecking Vit D level in 3-4 months. - Continue Eliquis 2.5 mg BID for DVT prophylaxis. Continue this x 4 weeks postop, per ortho. - PT/OT consulted: PT recommends short term rehab, OT recommending home health. > Case management sent referrals for home health services. - Pain regimen: Tylenol 1 g scheduled Q8H Ultram 50 mg Q4H PRN Toradol 15 mg Q6H PRN Dilaudid 0.25 - 0.5 mg Q4H PRN Anticipate discharge home with home health services 04/14/24 if hemoglobin remains stable. (2) Corneal abrasion, left: Plan: Patient reported left eye discomfort postop - Left eye with redness and excessive tearing, reported blurry vision. PERRLA. EOM intact bilaterally. - No swelling, crusting, or stringy discharge noted to indicate infectious etiology. - Suspect corneal abrasion secondary to eyes being taped closed during surgery. - Continue prophylactic Polytrim 1 drop OS Q3HWA x 7 days. 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 Hold PO meds while inpatient. Basal: 9 units BID. SSI - adjust basal as indicated. Plan Discussed discharge planning with case management Updated son and [id number] at bedside Resumed lisinopril Chronic stable problems: * HTN - continue home amlodipine, atenolol, lisinopril * HLD - continue simvastatin * Anxiety - continue buspar PRN * Chronic Pain - continue gabapentin, duloxetine, tramadol * Hypothyroidism - continue levothyroxine * GERD - continue pantoprazole DVT ppx: Eliquis 2.5 mg BID CODE STATUS: Full code Admission and Anticipated Discharge Date Admission Date: April 10, 2024 Supervising Physician Co-Signing Physician Notes RILEY Supervision Note: I did not personally see or examine the patient today, but I verified all boyle points of RILEY North' assessment and plan with the following exceptions/additions: None Subjective Patient seen and evaluated at bedside with son and [id number] present. She reports that she is feeling well today. Pain is well-controlled, she is ambulating well, left eye discomfort resolved, denies any nausea, light headedness, shortness of breath, chest pain. She does note that she experiences "burning sensation" around her incision after ambulating which last approximately 5 minutes before resolving. Denies any radiation down her leg or into her groin. Incision dressing was just changed prior to my evaluation, but nursing reports it looks good, no increased erythema or drainage. Minimal blood was noted on the dressing per RN. Patient did have a bowel movement this morning, denied any red blood or melena. Voiding independently after Beckman was removed, no hematuria noted. Case management met with the patient this morning, she agreed to home health services. Patient asked to remain inpatient today to ensure she is accepted with home health (they are closed today given the holiday), and to ensure that her hemoglobin is stable. This is reasonable. Anticipate discharge tomorrow, 04/14/2024. Physical Exam Physical Exam: General: No acute distress, nondiaphoretic, well-developed, well-nourished. HEENT: Left eye with excessive tearing. PERRLA. EOM intact bilaterally. No redness, swelling, crusting, or stringy discharge noted. Skin: The skin was without rashes, erythema, edema, or bruising. Cardiac: Regular rate and rhythm without murmurs gallops or rubs. Pulm: Clear to auscultation bilaterally without wheezes, rales or rhonchi. No respiratory distress. 92% on room air. Abdominal: Soft, nontender, nondistended. Bowel sounds present. Neuro: A&O x3. No focal neurological deficits. Extremities: Soft dressings in place postop L hip, clean, dry, intact. Able to wiggle toes bilaterally. Sensation intake bilaterally. Results & Data Results & Data Vital Signs (Past 12 Hours) Vital Signs Temp Pulse Resp BP Pulse Ox O2 Del Method 04/13/24 06:26 36.7 C 72 14 123/73 98 Room Air Laboratory Results Reviewed CBC Reviewed BMP PG Care Time/CCT Total # of Minutes Spent Total Time Spent with Patient: Total time spent is greater than 50% in coordination of care (as documented) at patient's floor/unit and/or counseling patient: Coding Level of Care Code 45443 SUB INP/OBS CARE 3/50MIN Diagnoses Left hip pain M25.552 Corneal abrasion, left S05.02XA Type 2 diabetes mellitus with complications E11.8
[2024-04-13 19:12] VITALS: TEMP 98.1
[2024-04-14 07:34] VITALS: RESP 18; O2SAT 96
--- NOTE | 2024-04-14 08:00 | Hospitalist Progress Note ---
Date of Service April 14, 2024 Assessment & Plan (1) Left hip pain: Plan: Mechanical fall at home; unable to ambulate following fall upon the left hip when transferring to her motorized scooter, no prodromal symptoms. - Xray - acute comminuted nonsidplaced fracture of the greater trochanter of the left femur - MRI - Acute comminuted fracture of the greater trochanter of the left femur with intertrochanteric component which nearly extends to the base of the lesser trochanter. Small amount of adjacent edema and hemorrhage. - Orthopedics consulted > Intramedullary nail fixation of left hip with Dr. Alvarez on 04/11/24. EBL 100 cc. No complications noted. > WBAT on left hip. Orthopedically stable for discharge when medically ready. - Acute blood loss anemia secondary to surgery. Hgb continues to drop slightly, 8.5 on 04/13. No signs of active bleeding, suspect this is secondary to acute fracture, surgical intervention, and inpatient blood draws. Continue to monitor. No indication for blood transfusion at this time. - Lisinopril held due to CHAUNCEY. Cr improved to baseline of 1.3 - Lisinopril to resume 04/14. - Vit D level low at 25. Started and to continue Vit D3 supplementation at 125 mcg daily for 2 weeks, then reduce to 25 mcg daily. Recommend rechecking Vit D level in 3-4 months. - Continue Eliquis 2.5 mg BID for DVT prophylaxis. Continue this x 4 weeks postop, per ortho. - PT/OT consulted: PT recommends short term rehab, OT recommending home health. > Case management sent referrals for home health services. - Pain regimen: Tylenol 1 g scheduled Q8H Ultram 50 mg Q4H PRN Toradol 15 mg Q6H PRN Dilaudid 0.25 - 0.5 mg Q4H PRN Anticipate discharge home with home health services 04/14/24 if hemoglobin remains stable. 04/14 - Pain appears to be well controlled with oral medications, scheduled tylenol and prn tramadol at present time. Repeat PT evals recs for HHPT, to have live - in caregiver the next 2 wks per patient. - Labs pending from this morning but planning for dc if hgb stable. (2) Corneal abrasion, left: Plan: Patient reported left eye discomfort postop - Left eye with redness and excessive tearing, reported blurry vision. PERRLA. EOM intact bilaterally. - No swelling, crusting, or stringy discharge noted to indicate infectious etiology. - Suspect corneal abrasion secondary to eyes being taped closed during surgery. - Continue prophylactic Polytrim 1 drop OS Q3HWA x 7 days. 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 Hold PO meds while inpatient. Basal: 9 units BID. SSI - adjust basal as indicated. Plan Discussed discharge planning with case management Updated son and [id number] at bedside Resumed lisinopril Chronic stable problems: * HTN - continue home amlodipine, atenolol, lisinopril * HLD - continue simvastatin * Anxiety - continue buspar PRN * Chronic Pain - continue gabapentin, duloxetine, tramadol * Hypothyroidism - continue levothyroxine * GERD - continue pantoprazole DVT ppx: Eliquis 2.5 mg BID CODE STATUS: Full code Admission and Anticipated Discharge Date Admission Date: April 10, 2024 Results & Data Results & Data Vital Signs (Past 12 Hours) Vital Signs Temp Pulse Resp BP BP Pulse Ox O2 Del Method 04/14/24 07:32 36.7 C 70 18 154/71 H 96 Room Air 04/13/24 21:00 Room Air 04/13/24 20:58 36.7 C 73 17 131/66 94 Room Air PG Care Time/CCT Total # of Minutes Spent Total Time Spent with Patient: Total time spent is greater than 50% in coordination of care (as documented) at patient's floor/unit and/or counseling patient: Coding Diagnoses Left hip pain M25.552 Corneal abrasion, left S05.02XA Type 2 diabetes mellitus with complications E11.8
[2024-04-14 09:25] LABS: Hematocrit (blood only) 29.9 % (37.0-47.0); Hemoglobin 9.1 g/dl (12.0-16.0); Mean Corpuscular Hemoglobin 25.3 pg (25.0-34.0); Mean Corpuscular Hgb Conc 30.4 g/dL (32.0-36.0); Mean Corpuscular Volume 83.3 fL (80.0-100.0); Mean Platelet Volume 10.2 fL (9.4-12.4); Platelet Count 185 K/uL (130-400); RDW Coefficient of Variation 15.7 % (11.5-14.5); RDW Standard Deviation 47.1 fL (36.4-46.3); Red Blood Count 3.59 M/uL (4.20-5.40); White Blood Count 6.19 K/ul (4.8-10.8)
[2024-04-14 09:45] LABS: BUN Creatinine Ratio 21.6 (10-20); Calcium 8.7 mg/dl (8.6-10.3); Creatinine Clr Calc Pharmacy 36.9 ml/min; Est GFR (African American) 44.5 ml/min; Est GFR (Non-African American) 38.4 ml/min; Potassium 4.4 mmol/L (3.5-5.1)
[2024-04-14 10:03] LABS: Ferritin 21.7 ng/ml (8-388)
--- NOTE | 2024-04-14 10:30 | Discharge Summary ---
Discharge Summary Date of Service April 14, 2024 Principal Dx & Hospital Course #1 = Principal Diagnosis (1) Left hip pain: Mechanical fall at home; unable to ambulate following fall upon the left hip when transferring to her motorized scooter, no prodromal symptoms. Xray - acute comminuted nonsidplaced fracture of the greater trochanter of the left femur MRI - Acute comminuted fracture of the greater trochanter of the left femur with intertrochanteric component which nearly extends to the base of the lesser trochanter. Small amount of adjacent edema and hemorrhage. Orthopedics consulted, Dr Alvarez s/p Intramedullary nail fixation of left hip with Dr. Alvarez on 04/11/24. EBL 100 cc. No complications noted. Activity: WBAT on left hip. Pain controlled with tylenol/tramadol. Moving her bowels. DVT proph: eliquis 2.5mg PO BID Acute blood loss anemia w/ Hgb 11.9--> 9.8, suspected 2nd to acute fracture/IM nailing/repeat blood draws. Surgical incision looks well. Hgb improved to 9.1 off IVF as well and did check Iron studies for completeness prior to discharge and Iron studies LOW--> iron LOW 23, unsaturated IBC ELEVATED 375. Trans % sat LOW at 6% and ferritin only 21.7 Ordered Venofer 300mg IV x 1, instructed to f/u with PCP about repeat Venofer IV or start PO iron supplementation. No bleeding in stool/urine reported. Would defer PO iron until ensuring bowels continue to move (has moved inpatient) PT/OT recs for HHPT on repeat evals as wished by patient. CM arranged HH to start 04/15 and patient having someone stay with her. Of note, has a walker already and has prior rx for tramadol which has been sufficient for pain control without need for new rx at discharge. Vit D level low at 25. Started and to continue Vit D3 supplementation at 125 mcg daily for 2 weeks (to hold her home dose), then reduce to 25 mcg daily (resume home dose). Recommend rechecking Vit D level in 3-4 months. (2) Corneal abrasion, left: Patient reported left eye discomfort postop Left eye with redness and excessive tearing, reported blurry vision. PERRLA. EOM intact bilaterally. - No swelling, crusting, or stringy discharge noted to indicate infectious etiology. Suspect corneal abrasion secondary to eyes being taped closed during surgery. Improvement/resolution, no issues reported w/ proph Polytrim drops and continued for total 7 days at dc (3) Type 2 diabetes mellitus with complications: Patient on metformin, insulin, and empagliflozin. Hold PO meds while inpatient. Basal: 9 units BID. SSI - adjust basal as indicated. BSGs controlled Home meds to continue at dc (4) Iron deficiency: as above, checked iron studies w/ anemia for completeness Iron/trans % sat LOW. Ferritin LOW normal 20s. Unsaturated IBC ELEVATED No bleeding reported Decision for Venofer 300mg IV prior to dc. Outpt f/u with PCP about repeat Venofer infusion vs PO iron supplementation w/ bowel regimen. If not UTD on c-scope screening, would recommend Plan Chronic stable problems: * HTN - continue home amlodipine, atenolol, lisinopril * HLD - continue simvastatin * Anxiety - continue buspar PRN * Chronic Pain - continue gabapentin, duloxetine, tramadol * Hypothyroidism - continue levothyroxine * GERD - continue pantoprazole DVT ppx: Eliquis 2.5 mg BID x 4 wks. Discharge home with HHPT. Has walker. Eliquis 2.5mg PO BID x 4 wks. Avoid NSAIDs. Tramadol for pain w/ tylenol. Outpt f/u Orthopedics as well as PCP at discharge Notes For Next Care Provider Follow up hemoglobin levels/consideration for repeat Venofer IV. Did not inquire but if not UTD on c-scope can be considered. Also could consider PO ferrous sulfate if no issues with constipation Repeat Vit D level 3-4 months. Medication Changes From Visit Eliquis 2.5mg PO BID x 4 wks for DVT prophylaxis Tramadol 50mg PO prn pain control Vitamin D PO supplementation increased. Bowel regimen OTC as needed Admission HPI Per Admitting Provider 78 y/o with a PMHx of IDDM, HTN, HLD, GERD, chronic pain, neuropathy, and hypothyroidism presents to the ED after a fall. Patient was going to sit on her wheelchair when she missed and landed on her left hip and shoulder. Very minimal pain at rest. Significant pain with attempted ambulation. XR without signs of fracture. Unable to ambulate due to pain. Hospitalist team consulted for admission. Patient with no preceding symptoms. No fevers, chills, CP, SOB, lightheadedness, dizziness, syncope, LOC, head trauma etc. Patient independent with ADLs. Primary caregiver for . Admission Exam Per Admitting Provider Gen: well appearing patient in NAD HEENT: AT NC MMM Resp: CTAB no wheezing no increased work of breathing CV: RRR no m/r/g clinically well perfused Abd: +BS, soft, non-tender, non-distended MSK: no obvious deformities, LLE neurovascularly intact Skin: no rashes or bruising Neuro: alert and oriented Psych: appropriate mood and affect Discharge Exam General: 78yo female sitting up in bed, ready for discharge, NAD, reports feeling well, general pallor Head atraumatic, normocephalic, mmm, trachea midline Resp: even/unlabored, no w/c/r, on room air 96% CV: RRR, no significant m/r/g, no pitting edema/calf tenderness, pulses present Rosy to her L arm noted GI: +BS, soft/NT : no vargas MSK/Neuro :DRESSING TO LEFT HIP c/d/i, slight edema but pulses palpable, sensation intact, toes mobile. Dressing looks great. Psych: AOx3, cooperative with exam Discharge Plan Discharge Items Patient Disposition: Home - Home Health Services Reason For Visit: Fall Discharge Diagnosis: Femur fracture (LEFT) Condition on Discharge: Good Goals: You have been hospitalized for an urgent problem which required surgery. During your stay at [facility], we have made an effort to correct the problem that brought you to the hospital while keeping you as comfortable as possible. Surgery and medications were used to bring your condition under control and your discharge instructions will include directions for any medications you should take after leaving the hospital. Please make sure to follow the advice of your surgeon regarding follow up with the surgeon and with your primary care provider. Activity: As commented below Activity Comment: weightbearing as tolerated with walker Non-emergency contact: Primary Care Provider and Surgeon Call non-emergency contact if: you have any medication questions, your symptoms worsen, your pain is not controlled, your pain is worsening and you have a fever Follow-up/Referrals: Primo Alvarez DO [Physician] - Marilu Villanueva MD [Primary Care Provider] - Diet: Carb Consistent or DM2 and Heart Healthy Addtl Attending Provider Instructions: You have been hospitalized for a fall and resulting femur/trochanteric fracture on the LEFT. Orthopedics, Dr Alvarez, was consulted and you underwent surgical repair. We are using ELIQUIS 2.5mg by mouth TWICE DAILY for total FOUR weeks for blood clot prevention. Please avoid ibuprofen/aleeve/NSAIDs while on blood thinner. You can continue tylenol and tramadol as needed for pain control. Continue over the counter bowel regimen as needed if issues moving your bowels but have moved them in the hospital. You have also been given a dose of IV iron for low iron studies and can discuss repeat dose with primary care or possibly starting oral replacement if not having any issues with constipation as this can frequently cause constipation. We checked a Vitamin D level and was LOW. We increased your Vitamin D to 5000 IU daily for 2 weeks then resume your prior dose. Please have follow up with primary care to repeat level in 3-4 months. For corneal abrasion, please continue the eye drops every three hours for another 4 days to complete 7 day course. Please follow up with primary care in the next 7-10 days to monitor your progress after hospitalization. Weight bearing as tolerated with a walker. Home health therapy has been arranged. Please return to the ER with any fever/chills, redness/increased pain or drainage from incision or for any other symptoms concerning for you. It has been a pleasure being a part of the medical team providing for you while you have been in the hospital. Take care! Addtl Meter Reading Clerk Provider Instructions: ORTHOPEDIC INSTRUCTIONS Hip Fracture Activity and Therapy Recommendations: 1. You were shown a series of exercises in the hospital. Do these exercises three times each day if you are able. 2. Get up and walk several times each day if you are capable. Make sure you have assistance is needed. For the first four weeks, try not to stand or walk for more than one hour at a time. If you do stand or walk for more than one hour, you will not hurt anything, but your leg will likely swell. 3. As you feel comfortable, you may change from the walker or crutches to a cane and then to independent walking if you are able. Please be safe. Medications: 1. Narcotic You will likely be sent from the hospital with the narcotic pain medication that worked best throughout your stay. 2. Eliquistake Eliquis 2.5 mg twice a day for 4 weeks after surgery 3. Other medications may be given for specific circumstances. If you have any questions, please call the office at [phone]. 4. Resume previous home medications unless otherwise instructed TEDs/Elastic Stockings: The white elastic stockings help limit swelling and prevent blood clots from forming in your legs. The more you wear them, the more they work. Wear them for six weeks. Dressing Care: [place] can be open to air as long as the incisions are not draining. If the incisions are draining or if the issa are getting caught on your clothes then please cover the issa with dry gauze. Change the dressings as necessary to keep the incision as dry as possible Showering: You may shower 5 days from the day of surgery as long as the incisions are not draining. Do not soak the incision. Let soapy water run over the issa and pat them dry. Things To Watch For: 1. Drainage from the incision site that occurs more than one week after your surgery. 2. Increased redness at the incision site. 3. Fever above 102 degrees Fahrenheit. 4. Unusual chest pain or shortness of breath. 5. Call [facility] at with any of the above problems Follow-Up Visit: Follow-up with Dr. Alvarez's PA (Primo Manzano) 2-3 weeks after your day of surgery. He will remove your issa and answer any questions. If you have any additional questions or concerns, Dr Alvarez is usually in the office at the same time and will be available Please call the office to set up an appointment for a time that works for you. Pending Studies at Discharge: No Stand-Alone Forms: My [facility], Smoking Cessation Medications and DC Order Prescriptions: New Eliquis 2.5 mg Tablet 2.5 mg PO BID 25 Days Qty: 51 0RF cholecalciferol (vitamin D3) 125 mcg (5,000 unit) Tablet 125 mcg PO QAM Qty: 14 0RF polymyxin B sulf-trimethoprim 10,000 unit- 1 mg/mL Drops 1 drp OPL Q3HWA 4 Days Qty: 10 0RF Continued buspirone 5 mg tablet 5 mg PO BID PRN (Reason: anxiety) Qty: 60 5RF duloxetine 60 mg capsule,delayed release(DR/EC) 60 mg PO DAILY Qty: 90 3RF levothyroxine 112 mcg tablet 112 mcg PO DAILY Qty: 90 3RF Jardiance 25 mg tablet 25 mg PO DAILY Qty: 30 4RF Rx Instructions: Take one tablet by mouth once daily. pantoprazole 20 mg tablet,delayed release (DR/EC) 20 mg PO DAILY Qty: 90 3RF metformin 500 mg tablet 500 mg PO BIDWMEAL Qty: 180 3RF Rx Instructions: Take ONE tablet by mouth with meals twice daily. simvastatin 20 mg tablet 20 mg PO QPM Qty: 90 3RF gabapentin 300 mg capsule 300 mg PO TID Qty: 270 3RF tramadol 50 mg tablet 50 - 100 mg PO TID PRN (Reason: pain) Qty: 180 0RF multivitamin Tablet 1 tab PO DAILY Ozempic 1 mg/dose (4 mg/3 mL) pen injector 1 mg subcut ONCE Qty: 3 5RF Rx Instructions: MONDAYS lisinopril 20 mg tablet 20 mg PO DAILY Qty: 90 3RF amlodipine 5 mg tablet 5 mg PO DAILY Qty: 90 3RF atenolol 25 mg tablet 25 mg PO BID Qty: 180 3RF Cbd Cream 1 applic topical UD PRN (Reason: Pain) cholecalciferol (vitamin D3) [Vitamin D3] 25 mcg (1,000 unit) tablet 2,000 unit PO DAILY insulin degludec [Tresiba FlexTouch U-100] 100 unit/mL (3 mL) insulin pen 36 unit subcut HS trazodone 50 mg tablet 50 mg PO HS PRN (Reason: insomnia) No Action (DME) pen needle, diabetic [BD Ultra-Fine Short Pen Needle] 31 gauge x 5/16" needle See Dose Instructions .ROUTE .MEDSUPPLY Qty: 200 3RF Rx Instructions: use twice daily , E11.21 (DME) lancets [OneTouch UltraSoft Lancets] [facility] See Dose Instructions .ROUTE .MEDSUPPLY Qty: 50 Patient Comments: twice daily Rx Instructions: As directed (DME) OneTouch Ultra Blue Test Strip Strip See Rx Instructions .ROUTE .MEDSUPPLY Qty: 10 Rx Instructions: test 3 times daily Discharge Orders: Discharge Order (Routine); Ordered 04/14/24 Ordered By: Bee Gross Admission Data Admit Date/Time: 04/10/24 15:01 Attending Provider: Jeremi Burgess Admit Provider: Tracee Perez Primary Care Provider: Marilu Villanueva Other Providers: Weston Manrique; Primo Alvarez Hospital Stay Data Consultations 04/10/24 02:21 ED Decision to Admit Stat 04/10/24 11:04 Consult Orthopedic Surgery Routine Procedures Performed Operation Date: 04/11/24 07:30 Actual Procedures p Left Short Intramedullary Nail Femur(Left) - Primo Alvarez, Diagnostic Imagining Performed 04/09/24 22:22 CT hip LT wo con Stat 04/10/24 08:01 MRI Hip [MR hip LT wo con] Urgent 04/11/24 06:47 FL hip LT 2-3V Routine Discharge Instructions Given to Patient (Per Discharging Provider) You have been hospitalized for a fall and resulting femur/trochanteric fracture on the LEFT. Orthopedics, Dr Alvarez, was consulted and you underwent surgical repair. We are using ELIQUIS 2.5mg by mouth TWICE DAILY for total FOUR weeks for blood clot prevention. Please avoid ibuprofen/aleeve/NSAIDs while on blood thinner. You can continue tylenol and tramadol as needed for pain control. Continue over the counter bowel regimen as needed if issues moving your bowels but have moved them in the hospital. You have also been given a dose of IV iron for low iron studies and can discuss repeat dose with primary care or possibly starting oral replacement if not having any issues with constipation as this can frequently cause constipation. We checked a Vitamin D level and was LOW. We increased your Vitamin D to 5000 IU daily for 2 weeks then resume your prior dose. Please have follow up with primary care to repeat level in 3-4 months. For corneal abrasion, please continue the eye drops every three hours for another 4 days to complete 7 day course. Please follow up with primary care in the next 7-10 days to monitor your progress after hospitalization. Weight bearing as tolerated with a walker. Home health therapy has been arranged. Please return to the ER with any fever/chills, redness/increased pain or drainage from incision or for any other symptoms concerning for you. It has been a pleasure being a part of the medical team providing for you while you have been in the hospital. Take care! Supervising Physician Co-Signing Physician Notes The patient was not seen by me. The chart was reviewed. Case discussed with RILEY Rodriguez. Agree with assessment and plan Total Time Total Time Spent Total Time Spent (In Minutes): 50 Coding Level of Care Code 44653 INP/OBS DISCH >30 MIN Diagnoses Left hip pain M25.552 Corneal abrasion, left S05.02XA Type 2 diabetes mellitus with complications E11.8 Iron deficiency E61.1
[2024-04-14] MEDS: IRON SUCROSE 300 MG in SODIUM CHLORIDE 0.9% 250 ML IV ONE (11:37)
[2024-04-14 13:09] VITALS: BP 131/66; PULSE 77
--- NOTE | 2024-04-15 08:14 | Coding Query ---
CODING QUERY To promote full compliance with coding requirements relating to patient care, provider participation is requested in all cases of dock superintendent uncertainty. Please assist us with the question(s) below: HP- PMHx of Vit D insufficiency and Osteopenia 04/10 PN- Vit D level low at 25. Started and to continue Vit D3 supplementation at 125 mcg daily for 2 weeks, then reduce to 25 mcg daily. Recommend rechecking Vit D level in 3-4 months. The Official Guidelines for Coding and Reporting, Section I. C. 13. D. 2. state "A code from category M80, not a traumatic fracture code, should be used for any patient with known osteoporosis who suffers a fracture, even if the patient had a minor fall or trauma, if that fall or trauma would not usually break a normal healthy bone." Coding Question(s): Can you please further clarify the cause/effect of the patient's current fracture and patient's known hx of osteopenia/osteoporosis, if any? [ x ] Osteoporosis with current (pathological) fracture [ ] Not osteoporotic fracture [ ] Other [ ] Unable to determine Physician's Response(s): Thank you Marilee Falcon Principal Diagnosis: "that condition established after study, to be chiefly responsible for occasioning the admission of the patient to the hospital for care." Co-Existing Principal Diagnosis: "when two or more diagnoses equally meet the criteria for principal diagnosis as determined by the circumstances of admission, diagnostic work up, and/or therapy provided, and the Alphabetic Index, Tabular List, or another coding guideline does not provide sequencing direction, any one of the diagnoses may be sequenced first." "When the physician has documented what appears to be a current diagnosis in the body of the record, but has not included the diagnosis in the final diagnostic statement, the physician should be asked whether the diagnosis should be added." (Source Coding Clinic 2 QTR90. p3-4) KLEBER
== END 2024-04-14 14:26 | disposition home health service (06) | DRG 481 ==
LOC: EDINP 21:30 → ED 21:30 → SUATTDRO 04-10 02:51 → EDINP 04-10 07:49 → 3E 04-10 08:21 → SUATTDRO 04-10 15:01